=== PATIENT | male | born 1935 | race Caucasian/White ===

== ENCOUNTER 2021-12-06 11:45 | Observation (INO) | payer MEDICARE, SELFPAY ==
[2021-12-06] VITALS (12 sets, daily range): BP systolic 103–117; BP diastolic 53–90; PULSE 60–118; RESP 14–22; TEMP 36.1–37; O2SAT 94–100; BMI 24.1
--- NOTE | ~2021-12-06 | CT_ITS ---
EXAMINATION: CT abdomen pelvis w con DATE: 12/06/2021 13:28 INDICATION: Blood in stool. TECHNIQUE: Computed tomography (CT) of the abdomen and pelvis was performed with 100 mL Omnipaque 350 intravenous contrast. Automated exposure control and iterative reconstruction technique were employe d. The dose-length product was 714.77 mGy-cm. COMPARISON: CT abdomen and pelvis 04/26/2017 FINDINGS: The visualized portions of the lung bases demonstrate mild atelectasis. A calcified right l dustin nodule is consistent with old granulomatous disease. There is a trace left pleural effusion. Card iomegaly is noted. There are pacer wires in right atrium, right ventricle, and coronary sinus. There are coronary artery calcifications. No pericardial effusion. The liver is normal. Calcifications in t he spleen are consistent with old granulomatous disease. The gallbladder, pancreas, and right adrenal gland are normal. There is a 13 mm mass in left adrenal gland measuring soft tissue attenuation with out change, likely an adenoma. There is cortical thinning of the kidneys. There are cysts in the kidn eys measuring up to 3.3 cm on the right. There are no dilated loops of bowel. There are scattered div erticula in the colon. There is fat stranding around a diverticulum in the distal transverse colon. T he appendix is not visualized. There is an umbilical hernia containing fat. The prostate is mildly en larged. There are no pathologically enlarged lymph nodes. There is no free intraperitoneal fluid. The re are bilateral inguinal hernias containing fat. There is a chronic compression fracture of L1. Ther e is mild lumbar spondylosis. IMPRESSION: 1. Mild diverticulitis of distal transverse colon. No perforation or abscess. 2. Umbilical hernia containing fat. Bilateral inguinal hernias containing fat. Reviewed, dictated and finalized at location A.
--- NOTE | 2021-12-06 12:06 | PC.NURSE ---
Patient states he has been having blood in his stool since Monday. Patient denies any pain. Patient has history of polyps. Patient denies taking blood thinners. Patient states blood was dark red with his stool. Patient denies any blood throughout the day in his underwear
[2021-12-06 12:18] LABS: Basophils Percent Auto 0.8 % (0.2-1.2); Eosinophils Absolute Auto 0.1 K/mm3 (0-0.3); Eosinophils Percent Auto 2.1 % (0-4.4); Hematocrit 28.4 % (42.0-52.0); Hemoglobin 9.4 g/dL (14.0-18.0); Immature Granulocyte Absolute 0.01 K/mm3 (0.00-0.031); Immature Granulocyte Percent A 0.2 % (0-0.5); Lymphocytes Absolute Auto 1.65 K/mm3 (0.9-3.2); Mean Corpuscular HGB Conc 33.1 g/dl (32-36); Mean Corpuscular Hemoglobin 33.8 pg (26-34); Mean Corpuscular Volume 102.2 fl (80-100); Mean Platelet Volume 10.3 fl (7.4-10.4); Monocytes Absolute Auto 0.4 K/mm3 (0.1-0.6); Monocytes Percent Auto 8.4 % (2.6-8.5); Neutrophils Absolute Auto 2.7 K/mm3 (1.3-6.7); Neutrophils Percent Auto 54.5 % (45.5-73.1); Platelet Count Result 172 k/mm3 (150-375); Red Blood Count 2.78 M/mm3 (4.6-6.20); Red Cell Distribution Width 13.2 % (11.5-14.5); White Blood Count 4.9 K/mm3 (4.5-10.0)
--- NOTE | 2021-12-06 12:21 | ECG_ITS ---
Measurements Intervals [place] Rate: 113 P: NM: 0 QRS: 96 QRSD: 131 T: 268 QT: 368 QTc: 506 Interpretive Statements INTERMITTENT VENTRICULAR PACED RHYTHM ATRIAL SENSE RHYTHM OCCASIONAL PREMATURE VENTRICULAR CONTRACTIONS NO FURTHER INTERPRETATION POSSIBLE NO PREVIOUS ECG AVAILABLE FOR COMPARISON Electronically Signed On 12-06-2021 16:22:23 CDT by Mahendra Berry M.D.
[2021-12-06 12:29] LABS: INR 1.3; Prothrombin Time 15.2 Seconds (11.1-14.7)
[2021-12-06 12:30] LABS: Partial Thromboplastin Time 24.8 SECONDS (22.3-36.8)
--- NOTE | 2021-12-06 12:36 | ED.GENADULT ---
HPI - General Adult General Chief complaint: GI Bleed Stated complaint: GI bleed Time Seen by Provider: 12/06/21 12:06 History of Present Illness HPI narrative: This is a 86-year-old male was in the ED with chief complaint of GI bleed. For the last 24 hours the patient has been having wine colored stools. He is also complaining of fatigue, dyspnea on exertion and shortness of breath. Patient had a colonoscopy in 2013 that had some polyps that were removed. The patient denies use of blood thinners. Patient denies abdominal pain, chest pain or any other physical complaints. Related Data Home Medications Medication Instructions Recorded Confirmed No Home Medications 12/06/21 12/06/21 Allergies Allergy/AdvReac Type Severity Reaction Status Date / Time No Known Allergies Allergy Verified 12/06/21 12:03 Review of Systems Review of Systems: CONSTITUTIONAL: Denies night sweats. EYES: No eye pain ENT: Denies rhinorrhea CARDIOVASCULAR: Denies palpitations RESPIRATORY: Denies hemoptysis GASTROINTESTINAL: Denies hematemesis GENITOURINARY: Denies hematuria. SKIN: Denies rash MUSCULOSKELETAL: Denies myalgia. NEUROLOGIC: Denies weakness. PSYCHIATRIC: Denies delusions PMF Past Medical History Medical History (Updated 12/06/21 @ 14:59 by Ramana Zarco MD) Atrial fibrillation CAD (coronary artery disease) CHF (congestive heart failure) Lower extremity edema Mixed hyperlipidemia Umbilical hernia Surgical History Surgical History (Updated 04/30/19 @ 15:17 by Cheryl Baez NP) History of heart artery stent (~12/2017) stents x 2 Family History Family History (Updated 12/08/17 @ 10:57 by DOCTOR UNKNOWN) Other Cerebrovascular accident Family history of lung cancer Social History Social History Smoking status: Never smoker Alcohol intake: current Exam Narrative: APPEARANCE: No apparent distress. Patient appears pale Head atraumatic. EYES: PERRLA/EOMI, NOSE: Normal no drainage NECK: Supple, Trachea midline RESPIRATORY: CTAB, No increased work of breathing. CARDIOVASCULAR: S1S2 appreciated ABDOMINAL: Soft, nontender, nondistended, no guarding or rebound Rectal exam revealed dark red stool in the rectal vault that was Hemoccult positive. MUSCULOSKELETAl: No obvious deformities NEURO: Alert. Moving 4/4 extremities SKIN:: Warm, dry. Normal color PSYCHIATRIC: Normal affect Course Vital Signs Vital signs: Vital Signs Temperature 97.6 F 12/06/21 12:00 Pulse Rate 118 H 12/06/21 12:00 Respiratory Rate 18 12/06/21 12:00 Blood Pressure 103/59 L 12/06/21 12:00 Pulse Oximetry 98 12/06/21 12:00 Temperature 97.3 F L 12/06/21 13:51 Pulse Rate 100 12/06/21 13:51 Respiratory Rate 19 12/06/21 13:51 Blood Pressure 103/80 12/06/21 13:51 Pulse Oximetry 99 12/06/21 13:51 Medical Decision Making MDM Narrative Medical decision making narrative: This is an 86-year-old male presenting with a GI bleed. He is tachycardic with a relatively low blood pressure. 2 units of blood have been ordered stat. The abdominal lab work and CT abdomen pelvis have also been ordered. patient's initial hemoglobin was 9.4. This is an acute bleed that may not accurately represent patient's true hemoglobin and should be trended over time. INR was normal. Metabolic panel was normal. Patient's CT abdomen pelvis showed transverse colon diverticulitis. Patient's abdominal exam is benign and he has not have pain at this time. However given the patient's GI bleed and abnormal vital signs I am going to treat him with antibiotics. EKG interpretation: Rhythm intermittently paced, [id number], [place] - rightward, [place] - variable, QRS [narrow], QTC [normal], T waves -[negative for concerning inversions], ST Segments - [Negative for concerning elevations] Final interpretations: intermittently paced rhythm with occasional multifocal PVCs. I discussed the case with Dr. Dugan
[2021-12-06 12:59] LABS: Alanine Aminotransferase 16 U/L (6-50); Alkaline Phosphatase 71 U/L (38-126); Anion Gap 16 mmol/L (8-16); Aspartate Amino Transferase 23 U/L (17-59); Bilirubin,Total 0.5 mg/dL (0.2-1.3); Blood Urea Nitrogen 21 mg/dL (9-20); Calcium 8.5 mg/dL (8.4-10.2); Carbon Dioxide 25 mmol/L (22-30); Chloride 104 mmol/L (98-107); Estimated CRCL calculation 55 ml/min; Estimated Glomerular Filt Rate > 60; Glucose 125 mg/dL (65-110); Sodium 145 mmol/L (137-145)
[2021-12-06] MEDS: TUBING, BLOOD PLUM PUMP TUBING 1 EACH XX (14:04)
[2021-12-06] MEDS: SODIUM CHLORIDE 0.9% IV 250 ML 30 ML IV CONT (14:04)
[2021-12-06 15:20] LABS: Influenza A QL RT-PCR Negative (Negative); Influenza B QL RT-PCR Negative (Negative); SARS-CoV-2 RNA PCR Negative
--- NOTE | 2021-12-06 15:30 | PM.IMHP ---
H&P: HPI History of Present Illness Date/Time: 12/06/21 15:30 Chief Complaint: Rectal bleeding. Narrative: This is an 86-year-old male with history of diverticulitis, coronary artery disease, congestive heart failure, and paroxysmal atrial fibrillation not on anticoagulation presented to the emergency department from home for evaluation of rectal bleeding. Over the last 24 hours he has had 4 to 5 soft bowel movements coated with bright red blood. He has become increasingly weak after each bloody stool and he has been feeling lightheaded and dizzy today which prompted him to come in for evaluation. His vital signs were stable on arrival and his hemoglobin and hematocrit were 9.4 and 28.4% respectively. On rectal exam he was noted to have gross blood in the rectal vault and a subsequent CT scan of the abdomen and pelvis showed findings of mild diverticulitis of the distal transverse colon. Interestingly he has no pain whatsoever and he reports having a good appetite. He has not had fever, chills, or sweats. He also denies abdominal pain, bloating, nausea, and vomiting. Review of Systems Review of Systems: Twelve systems were reviewed. He is no longer taking any medications at home. No fever, chills, or sweats. No recent cold or flu symptoms. He denies chest pain shortness a breath. Except as documented, all other systems were reviewed and are negative. [facility] Past Medical History Medical History (Updated 12/06/21 @ 22:51 by Marion Montana PA-C) Atrial fibrillation CAD (coronary artery disease) CHF (congestive heart failure) Lower extremity edema Mixed hyperlipidemia Umbilical hernia Surgical History Surgical History (Updated 12/06/21 @ 22:51 by Marion Montana PA-C) History of colonoscopy with polypectomy History of heart artery stent (~12/2017) stents x 2 History of permanent cardiac pacemaker placement Family History Family History Daughter Family history of lung cancer Grandparent Cerebrovascular accident Social History Social History (Updated 12/06/21 @ 22:49 by Marion Montana PA-C) Social History: Surrogate medical decision maker: Isatu Moore, spouse. Code status: Full code. Smoking status: Never smoker Alcohol intake: never Substance use: never Additional living arrangements comments: The patient lives with his in [place]. Additional occupation/education comments: Retired from [employer], played [email or web address]. Spiritual care concerns: No Has the Lack of Transportation Kept You From Medical Appointments or From Getting Medications?: No Within the Past 12 Months, Were You Worried Whether Your Food Would Run Out Before You Got Money to Buy More?: Never True What is Your Housing Situation Today?: I Have Housing Are You Worried That in the Next 2 Months, You May Not Have Your Own Housing to Live In?: No Do You Have Trouble Paying Your Heating Or Electricity Bill?: No Do You Have Trouble Paying For Medicines?: No Are You Currently Unemployed and Looking for Work?: No Highest Level of Education Completed: Master's Degree or Higher Do You Have Trouble With Childcare or the Care of a Family Member?: No Meds Home Medications and Allergies Home Medications Medication Instructions Recorded Confirmed Type No Home Medications 12/06/21 12/06/21 History Allergies Allergy/AdvReac Type Severity Reaction Status Date / Time No Known Allergies Allergy Verified 12/06/21 19:01 Vital Signs Vital Signs - 24 hr 12/06/21 12:00 12/06/21 12:31 12/06/21 13:33 Temperature 97.6 F 97.2 F L Pulse Rate 118 H 94 107 H Respiratory Rate 18 20 20 Blood Pressure 103/59 L 117/75 104/69 Pulse Oximetry 98 98 12/06/21 13:40 12/06/21 13:46 12/06/21 13:51 Temperature 97 F L 97.3 F L 97.3 F L Pulse Rate 106 H 105 H 100 Respiratory Rate 20 22 H 19 Blood Pressure 104/79 108/75 103/80 Pulse
--- NOTE | 2021-12-06 17:39 | WPDGICN ---
Assessment and Plan Assessment and plan (1) GI (gastrointestinal bleed): Code(s): K92.2 - Gastrointestinal hemorrhage, unspecified Status: Acute Assessment and Plan: Judging by the color of his bloody stool, I am fairly certain this is a lower gastrointestinal bleed. The etiology could be diverticular bleed or possible AVMs. I doubt malignancy. I told the will schedule for colonoscopy, prepping him tomorrow for procedure on Monday. (2) Atrial fibrillation: Code(s): I48.91 - Unspecified atrial fibrillation Status: Chronic Assessment and Plan: He is not anticoagulated. He does have a pacemaker. (3) Paced cardiac rhythm: Status: Acute Assessment and Plan: EKG shows occasionally ventricular paced rhythm. (4) Diverticulitis: Code(s): K57.92 - Diverticulitis of intestine, part unspecified, without perforation or abscess without bleeding Status: Acute Assessment and Plan: CT suggest possible diverticulitis in the area the transverse colon but he is nontender. Nevertheless, diverticular disease is probably the etiology of his bleeding. GI Consult Note Consult date/time: 12/06/21 17:39 HPI: Lizandro Moore is a 86 year old male who began passing dark red blood per rectum this weekend. He states that he has never had anything like this before. He knows that he has had colon polyps in the past. He states that he recalls popping several polyps and in 10 years ago had a colonoscopy in [place] where 1 small polyp was removed. He has had diverticulitis in the past he remembers help painful it was. He has had no pain over the last several days. He did not get sweaty or pass out. He may have been a little lightheaded walking around. He has chronic atrial fibrillation but is not anticoagulated. He has not had nausea or vomiting. He denies dysphagia. He denies any history of liver disease or pancreatic disease. Review of Systems Review of Systems: All systems reviewed & are unremarkable except as noted in HPI and below [facility] Past Medical History Medical History Atrial fibrillation CAD (coronary artery disease) CHF (congestive heart failure) Lower extremity edema Mixed hyperlipidemia Umbilical hernia Surgical History Surgical History History of heart artery stent (~12/2017) stents x 2 Family History Family History Other Cerebrovascular accident Family history of lung cancer Social History Social History Smoking status: Never smoker Alcohol intake: current Meds Home Medications and Allergies Home Medications Medication Instructions Recorded Confirmed Type No Home Medications 12/06/21 12/06/21 History Allergies Allergy/AdvReac Type Severity Reaction Status Date / Time No Known Allergies Allergy Verified 12/06/21 12:03 Vital Signs Vital Signs - 24 hr 12/06/21 12:00 12/06/21 12:31 12/06/21 13:33 Temperature 36.4 C 36.2 C L Pulse Rate 118 H 94 107 H Respiratory Rate 18 20 20 Blood Pressure 103/59 L 117/75 104/69 Pulse Oximetry 98 98 12/06/21 13:40 12/06/21 13:46 12/06/21 13:51 Temperature 36.1 C L 36.3 C L 36.3 C L Pulse Rate 106 H 105 H 100 Respiratory Rate 20 22 H 19 Blood Pressure 104/79 108/75 103/80 Pulse Oximetry 99 100 99 Exam Const: General: alert Orientation/consciousness: patient oriented x3 Resp: Auscultation: clear to auscultation bilaterally Cardio: Rhythm: regular rhythm and abnormal rhythm irregularly irregular GI: GI Palp: Yes Soft to palpation, No Tenderness to palpation present (GI) and Yes No hepatosplenomegaly present Auscultation: normal bowel sounds Neuro: General: patient oriented x3 Results Labs CBC & Chem 7: 12/06/21 12:10 11/14
--- NOTE | 2021-12-06 18:53 | ADMGEN ---
This patient, Lizandro Moore, was admitted to [facility] Surg Room 316-01. Patient/family oriented to hospital policies and general routines including ID bracelet, bed and alarms, visiting hours, pain management, procedures, bathroom and other care routines, personal items, smoking policy, room service/diet, and visiting hours. Information on how to activate the Rapid Response Team has been discussed. Patient/Family are encouraged to report perceived risks to care and to ask questions if they do not understand what they are told or what they should do.
[2021-12-06 23:26] LABS: Hematocrit 27.6 % (42.0-52.0); Hemoglobin 9.1 g/dL (14.0-18.0)
[2021-12-07] VITALS (14 sets, daily range): BP systolic 97–172; BP diastolic 58–142; PULSE 56–131; RESP 14–16; TEMP 36.4–36.7; O2SAT 94–100
[2021-12-07 08:12] LABS: Hematocrit 28.8 % (42.0-52.0); Hemoglobin 9.4 g/dL (14.0-18.0); Immature Platelet Fraction Pct 4.5 % (0.9-11.2); Mean Corpuscular HGB Conc 32.6 g/dl (32-36); Mean Corpuscular Hemoglobin 32.5 pg (26-34); Mean Corpuscular Volume 99.7 fl (80-100); Mean Platelet Volume 10.1 fl (7.4-10.4); Platelet Count Result 154 k/mm3 (150-375); Red Blood Count 2.89 M/mm3 (4.6-6.20); Red Cell Distribution Width 17.4 % (11.5-14.5); White Blood Count 4.6 K/mm3 (4.5-10.0)
[2021-12-07 08:27] LABS: Anion Gap 7 mmol/L (8-16); Blood Urea Nitrogen 17 mg/dL (9-20); Carbon Dioxide 27 mmol/L (22-30); Chloride 107 mmol/L (98-107); Estimated CRCL calculation 51 ml/min; Estimated Glomerular Filt Rate > 60; Glucose 105 mg/dL (65-110); Magnesium 1.8 mg/dL (1.6-2.3); Potassium 4.1 mmol/L (3.4-5.0); Sodium 141 mmol/L (137-145)
[2021-12-07] MEDS: BISACODYL 5 MG TABLET EC 10 MG PO (09:36)
--- NOTE | 2021-12-07 11:01 | PM.IMPN ---
Progress Note: A&P Assessment and Plan (1) Diverticulitis: Code(s): K57.92 - Diverticulitis of intestine, part unspecified, without perforation or abscess without bleeding Status: Acute Assessment and Plan: Continue IV antibiotics. (2) Rectal bleeding: Code(s): K62.5 - Hemorrhage of anus and rectum Status: Acute Assessment and Plan: Likely secondary to above. Plan for scope GI tomorrow. (3) Macrocytic anemia: Code(s): D53.9 - Nutritional anemia, unspecified Status: Acute Assessment and Plan: Monitor hemoglobin and transfuse as needed hemoglobin is stable today. Subjective Date/time seen: 12/07/21 11:01 patient is doing well no new complaints. Exam Narrative: General: Well-developed male sitting up in bed in no acute distress. Weight: 85.3 kilograms. BMI: 24.1. HEENT: PERRL, EOMI. Sclera anicteric. Conjunctiva mildly injected. Oral mucosa moist. Neck: Supple. Respiratory: Lungs are clear to auscultation bilaterally. Cardiovascular: Regular rate and rhythm with S1-S2. Gastrointestinal: Abdomen is soft and nondistended with positive bowel sounds. He is somewhat tender to deeper palpation the periumbilical region. No voluntary guarding or rebound tenderness. Skin: Warm and dry. Generalized pallor. Extremities: No cyanosis or clubbing. Trace ky ankle edema bilaterally. Radial and pedal pulses intact. Neurological: Alert. Cranial nerves 2-12 are grossly intact. No gross focal deficits to casual conversation. Psychiatric: Pleasant and cooperative with normal mood and affect. Objective Data Vital Signs Vital Signs: Vital Signs - 24 hr 12/06/21 12:00 12/06/21 12:31 12/06/21 13:33 Temperature 97.6 F 97.2 F L Pulse Rate 118 H 94 107 H Respiratory Rate 18 20 20 Blood Pressure 103/59 L 117/75 104/69 Pulse Oximetry 98 98 Oxygen Delivery 12/06/21 13:40 12/06/21 13:46 12/06/21 13:51 Temperature 97 F L 97.3 F L 97.3 F L Pulse Rate 106 H 105 H 100 Respiratory Rate 20 22 H 19 Blood Pressure 104/79 108/75 103/80 Pulse Oximetry 99 100 99 Oxygen Delivery 12/06/21 17:42 12/06/21 18:00 12/06/21 19:00 Temperature 98.2 F 98.3 F 98.3 F Pulse Rate 63 94 62 Respiratory Rate 20 20 20 Blood Pressure 110/90 104/53 L 113/67 Pulse Oximetry 99 99 99 Oxygen Delivery 12/06/21 20:00 12/06/21 21:07 12/06/21 20:00 Temperature 98 F 98.6 F Pulse Rate 86 60 116 H Respiratory Rate 18 14 Blood Pressure 114/72 105/75 Pulse Oximetry 94 98 Oxygen Delivery 12/06/21 20:00 12/06/21 22:00 12/07/21 00:00 Temperature 98.6 F Pulse Rate 60 104 H Respiratory Rate 14 Blood Pressure 105/75 Pulse Oximetry 98 Oxygen Delivery Room Air 12/07/21 04:00 12/07/21 06:00 12/07/21 08:00 Temperature 98.1 F Pulse Rate 109 H 56 L Respiratory Rate 14 Blood Pressure 110/67 143/118 H Pulse Oximetry 96 Oxygen Delivery 12/07/21 08:50 12/07/21 08:51 12/07/21 09:00 Temperature Pulse Rate Respiratory Rate Blood Pressure 149/124 H 172/142 H 118/58 L Pulse Oximetry Oxygen Delivery 12/07/21 08:00 Temperature Pulse Rate 131 H Respiratory Rate Blood Pressure Pulse Oximetry Oxygen Delivery Intake/Output Intake/Output: Intake & Output 12/04/21 12/05/21 12/06/21 12/07/21 23:59 23:59 23:59 23:59 Intake Total 750 1007 Balance 750 1007 Meds/Results Medications: Active Medications Generic Name Dose Route Start Last Admin Trade Name Freq PRN Reason Stop Dose Admin Piperacillin/Tazobactam/Dextrose 3.375 gm in 50 mls @ 100 mls/hr 12/07/21 00:00 12/07/21 06:06 Zosyn 3.375 Gm/D5w 50ml Pm IVPB 100 mls/hr Q6H SHANE Administration Polyethylene Glycol 238 gm 12/07/21 15:00 Polyethylene Glycol 3350 238 Gm Bottle PO 12/07/21 15:01 ONCE ONE Radiology Results: ITS Impressions Abdomen/Pelvis CT 12/06/21 13:29 IMPRESSION: 1. Mild diverticulitis of distal transverse
[2021-12-07] MEDS: polyethylene glycoL 3350 238 GM BOTTLE PO (15:10)
--- NOTE | 2021-12-07 19:54 | PC.NURSE ---
last on bowel prep given now, pt to finish bowel prep for colonoscopy tomorrow 12/08/21 at around 1130am
[2021-12-08] VITALS (15 sets, daily range): BP systolic 84–111; BP diastolic 56–77; PULSE 62–100; RESP 15–200; TEMP 35.8–36.4; O2SAT 93–100
--- NOTE | 2021-12-08 01:55 | PC.NURSE ---
pt stated bm's clear
[2021-12-08] MEDS: LACTATED RINGERS 1,000 ML 150 ML IV CONT (10:14)
--- NOTE | 2021-12-08 10:36 | WPDANESEPPF ---
Anes - Initial Pre Proc Eval Procedure: Operation Date: 12/08/21 11:30 Proposed Procedures p Colonoscopy - Sampson Dugan MD Date/Time: 12/08/21 10:36 Surgeon: Levi Rockwell MD Pre Op Diagnosis: GI Bleed Patient Data Age: 86 Gender: M Height: 1.88 m Weight: 85.9 kg Last Vital Signs Temp 97.1 F L 12/08/21 10:11 Pulse 77 12/08/21 10:11 Resp 20 12/08/21 10:11 BP 95/70 L 12/08/21 10:11 Pulse Ox 98 12/08/21 10:11 O2 Del Method Room Air 12/08/21 10:11 Allergies Allergy/AdvReac Type Severity Reaction Status Date / Time No Known Allergies Allergy Verified 12/08/21 10:10 Home Medications Medication Instructions Recorded Confirmed Type No Home Medications 12/06/21 12/06/21 History Patient hx anesthesia problems: none Family hx anesthesia problems: none Results Review: All pre-operative results and documents have been reviewed as part of the pre-operative evaluation. [facility] Past Medical History Medical History (Updated 12/06/21 @ 22:51 by Marion Montana PA-C) Atrial fibrillation CAD (coronary artery disease) CHF (congestive heart failure) Lower extremity edema Mixed hyperlipidemia Umbilical hernia Surgical History Surgical History (Updated 12/06/21 @ 22:51 by Marion Montana PA-C) History of colonoscopy with polypectomy History of heart artery stent (~12/2017) stents x 2 History of permanent cardiac pacemaker placement Family History Family History Daughter Family history of lung cancer Grandparent Cerebrovascular accident Social History Social History (Updated 12/06/21 @ 22:49 by Marion Montana PA-C) Social History: Surrogate medical decision maker: Isatu Moore, spouse. Code status: Full code. Smoking status: Never smoker Alcohol intake: never Substance use: never Additional living arrangements comments: The patient lives with his in [place]. Additional occupation/education comments: Retired from [employer], played [employer]. Spiritual care concerns: No Has the Lack of Transportation Kept You From Medical Appointments or From Getting Medications?: No Within the Past 12 Months, Were You Worried Whether Your Food Would Run Out Before You Got Money to Buy More?: Never True What is Your Housing Situation Today?: I Have Housing Are You Worried That in the Next 2 Months, You May Not Have Your Own Housing to Live In?: No Do You Have Trouble Paying Your Heating Or Electricity Bill?: No Do You Have Trouble Paying For Medicines?: No Are You Currently Unemployed and Looking for Work?: No Highest Level of Education Completed: Master's Degree or Higher Do You Have Trouble With Childcare or the Care of a Family Member?: No Anes - Eval Final PreProcedure Day of Procedure 12/08/21 10:36 Patient weight: normal Heart: irregular rhythm Lungs: clear to auscultation Airway: Mallampati scale class II Neurological: alert and oriented Last oral intake: >/= 8 hours ASA classification: IV Emergent: no Anesthetic plan: proceed Anesthesia type and monitoring: general (has h/o CHF and last echo of 2018 revealed an EF of 10-15 percent; no others on the chart and 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 Informed Consent: The patient's anesthetic plan and its attendant risks and benefits were discussed with the patient/family/POA. Questions were solicited and answers provided to the satisfaction of the patient/family/POA.
--- NOTE | 2021-12-08 12:06 | SUR.PHASEII ---
Pt's EKG rhythm shown to Dr. Mccrary. No further orders.
--- NOTE | 2021-12-08 13:37 | PM.IMPN ---
Progress Note: A&P Assessment and Plan (1) Diverticulitis: Code(s): K57.92 - Diverticulitis of intestine, part unspecified, without perforation or abscess without bleeding Status: Acute Assessment and Plan: Patijennyn presents with rectal bleeding. CT scan showing mild diverticulitis of distal colon. He was started on Zosyn. Colonoscopy showing diverticulosis with recent bleeding. Continue abx for now. Advance diet. (2) Rectal bleeding: Code(s): K62.5 - Hemorrhage of anus and rectum Status: Acute Assessment and Plan: Likely secondary to diverticular bleeding. Monitor to ensure the bleeding has stopped. (3) Macrocytic anemia: Code(s): D53.9 - Nutritional anemia, unspecified Status: Acute Assessment and Plan: Hgb low in the 9 range but stable. Bleeding appears to have stopped. Monitor hemoglobin and transfuse as needed. (4) CAD (coronary artery disease): Code(s): I25.10 - Atherosclerotic heart disease of [place] coronary artery without angina pectoris Status: Chronic Assessment and Plan: Not on treatment. (5) CHF (congestive heart failure): Code(s): I50.9 - Heart failure, unspecified Status: Chronic Assessment and Plan: Appears euvolemic. Echo in 2018 showing EF 10-15% with severe MR. Not on treatment. Follow (6) Atrial fibrillation: Code(s): I48.91 - Unspecified atrial fibrillation Status: Chronic Assessment and Plan: EKG showing paced rhythm. Not on treatment for AFib. Subjective Date/time seen: 12/08/21 13:37 Interval history: 86yo male with CAD, AFib and CHF here for rectal bleeding. Assuming care. Chart reviewed. No CP or SOB. No abd pain. He never had abd pain prior to admission. He does not take any home medications except Tylenol prn. He drinks 1 glass or wine per day. He was still having rectal bleeding with the bowel prep but it almost cleared by the end of the prep. Exam Narrative: AF 96.8 111/56 73 20 94% ra Gen - NARD Chest - CTA bilaterally, nml RR CV - Regular with frequent extra beats. nml rate Abd - Soft, NT/ND, Positive BS Ext - No pedal edema Psych - Nml mood and affect Skin - pale appearing Objective Data Vital Signs Vital Signs: Vital Signs - 24 hr 12/07/21 14:00 12/07/21 16:00 12/07/21 17:34 Temperature 97.9 F Pulse Rate 108 H 101 H Respiratory Rate 14 Blood Pressure 97/66 L 110/73 Pulse Oximetry 98 Oxygen Delivery 12/07/21 20:00 12/07/21 20:00 12/07/21 20:00 Temperature 97.9 F Pulse Rate 101 H 123 H Respiratory Rate 14 Blood Pressure 110/73 Pulse Oximetry 98 Oxygen Delivery Room Air 12/07/21 22:00 12/08/21 00:00 12/08/21 06:20 Temperature 97.5 F L 96.9 F L Pulse Rate 73 98 70 Respiratory Rate 16 15 Blood Pressure 114/80 99/70 L Pulse Oximetry 100 97 Oxygen Delivery 12/08/21 07:38 12/08/21 09:54 12/08/21 09:55 Temperature 96.4 F L 96.4 F L 96.4 F L Pulse Rate 100 92 62 Respiratory Rate 20 20 20 Blood Pressure 105/77 93/74 L 94/70 L Pulse Oximetry 99 98 100 Oxygen Delivery 12/08/21 10:04 12/08/21 10:05 12/08/21 10:05 Temperature 96.4 F L 96.4 F L 96.4 F L Pulse Rate 100 92 62 Respiratory Rate 20 200 H 20 Blood Pressure 105/77 93/74 L 94/70 L Pulse Oximetry 99 98 100 Oxygen Delivery 12/08/21 10:11 12/08/21 11:11 12/08/21 11:21 Temperature 97.1 F L Pulse Rate 77 90 88 Respiratory Rate 20 24 H 19 Blood Pressure 95/70 L 92/66 L 84/57 L Pulse Oximetry 98 93 94 Oxygen Delivery Room Air Room Air Room Air 12/08/21 11:31 12/08/21 12:03 Temperature 96.8 F L Pulse Rate 73 73 Respiratory Rate 30 H 20 Blood Pressure 95/63 L 111/56 L Pulse Oximetry 93 94 Oxygen Delivery Room Air Intake/Output Intake/Output: Intake & Output 12/05/21 12/06/21 12/07/21 12/08/21 23:59 23:59 23:59 23:59 Intake Total 750 2047 350 Balance 750 2047 350 Meds/Results Medications
[2021-12-09 06:00] VITALS: BP 105/60; PULSE 71; RESP 18; TEMP 36.2; O2SAT 98
[2021-12-09 06:24] LABS: Hematocrit 25.6 % (42.0-52.0); Hemoglobin 8.3 g/dL (14.0-18.0); Mean Corpuscular HGB Conc 32.4 g/dl (32-36); Mean Corpuscular Hemoglobin 31.9 pg (26-34); Mean Corpuscular Volume 98.5 fl (80-100); Mean Platelet Volume 10.3 fl (7.4-10.4); Platelet Count Result 170 k/mm3 (150-375); Red Cell Distribution Width 16.2 % (11.5-14.5); White Blood Count 5.1 K/mm3 (4.5-10.0)
--- NOTE | 2021-12-09 07:07 | WPDGIPROGNO ---
Progress Note: A&P Assessment and Plan (1) GI (gastrointestinal bleed): Code(s): K92.2 - Gastrointestinal hemorrhage, unspecified Status: Acute Assessment and Plan: Judging by the color of his bloody stool, I am fairly certain this is a lower gastrointestinal bleed. The etiology could be diverticular bleed or possible AVMs. I doubt malignancy. I told the will schedule for colonoscopy, prepping him tomorrow for procedure on Monday. colonoscopy did reveal extensive diverticular disease and much old blood in the colon. Hemoglobin is a little lower--- 8.3-- but stable. From my perspective he can be discharged today (2) Atrial fibrillation: Code(s): I48.91 - Unspecified atrial fibrillation Status: Chronic Assessment and Plan: He is not anticoagulated. He does have a pacemaker. (3) Paced cardiac rhythm: Status: Acute Assessment and Plan: EKG shows occasionally ventricular paced rhythm. (4) Diverticulitis: Code(s): K57.92 - Diverticulitis of intestine, part unspecified, without perforation or abscess without bleeding Status: Acute Assessment and Plan: CT suggest possible diverticulitis in the area the transverse colon but he is nontender. Nevertheless, diverticular disease is probably the etiology of his bleeding. I do not see evidence of diverticulitis on colonoscopy. No edema or erythema. I think we can discontinue his antibiotics. Subjective Date/time seen: 12/09/21 07:07 He had 1 stool last evening that contained dark blood. It was not loose as previous bowel movements had been. He tolerated his regular low-fiber dinner. Denies complaints. No abdominal pain. We discussed the findings of his colonoscopy, extensive diverticular disease with evidence of recent bleeding distal to the hepatic flexure. He does not take anti-inflammatories or aspirin at home. Tina that there is always a chance of recurrent bleeding but that this does not tend to occur frequently in patients who are not on something like aspirin Exam Const: General: alert Orientation/consciousness: patient oriented x3 Resp: Auscultation: clear to auscultation bilaterally Cardio: Rhythm: regular rhythm and abnormal rhythm irregularly irregular GI: GI Palp: Yes Soft to palpation, No Tenderness to palpation present (GI) and Yes No hepatosplenomegaly present Auscultation: normal bowel sounds Neuro: General: patient oriented x3 Objective Data Vital Signs Vital Signs: Vital Signs - 24 hr 12/08/21 07:38 12/08/21 09:54 12/08/21 09:55 Temperature 35.8 C L 35.8 C L 35.8 C L Pulse Rate 100 92 62 Respiratory Rate 20 20 20 Blood Pressure 105/77 93/74 L 94/70 L Pulse Oximetry 99 98 100 Oxygen Delivery 12/08/21 10:04 12/08/21 10:05 12/08/21 10:05 Temperature 35.8 C L 35.8 C L 35.8 C L Pulse Rate 100 92 62 Respiratory Rate 20 200 H 20 Blood Pressure 105/77 93/74 L 94/70 L Pulse Oximetry 99 98 100 Oxygen Delivery 12/08/21 10:11 12/08/21 11:11 12/08/21 11:21 Temperature 36.2 C L Pulse Rate 77 90 88 Respiratory Rate 20 24 H 19 Blood Pressure 95/70 L 92/66 L 84/57 L Pulse Oximetry 98 93 94 Oxygen Delivery Room Air Room Air Room Air 12/08/21 11:31 12/08/21 12:03 12/08/21 14:00 Temperature 36.0 C L 36.1 C L Pulse Rate 73 73 70 Respiratory Rate 30 H 20 18 Blood Pressure 95/63 L 111/56 L 102/62 Pulse Oximetry 93 94 98 Oxygen Delivery Room Air 12/08/21 22:00 Temperature 36.2 C L Pulse Rate 83 Respiratory Rate 15 Blood Pressure 94/58 L Pulse Oximetry 94 Oxygen Delivery Intake/Output Intake/Output: Intake & Output 12/06/21 12/07/21 12/08/21 12/09/21 23:59 23:59 23:59 23:59 Intake Total 750 2047 750 50 Balance 750 2047 750 50 Meds/Results Radiology Results: ITS Impressions Abdomen/Pelvis CT 12/06/21 13:29 IMPRESSION: 1. Mild diverticulitis of distal transverse colon. No perforation or abscess. 2. Umbilical hernia conta
[2021-12-09 08:00] VITALS: BP 87/70; PULSE 93; RESP 20; TEMP 36.2; O2SAT 100
--- NOTE | 2021-12-09 09:16 | WPDANESPN ---
Anes - Prog Note Post-Op Date/Time: 12/09/21 09:16 Vital Signs: Last Vital Signs Temp 36.2 C L 12/09/21 06:00 Pulse 71 12/09/21 06:00 Resp 18 12/09/21 06:00 BP 105/60 12/09/21 06:00 Pulse Ox 98 12/09/21 06:00 O2 Del Method Room Air 12/08/21 11:31 Pain Score (VAS): 0 I/O: Intake & Output 12/08/21 12/09/21 12/09/21 23:59 07:59 15:59 Intake Total 400 400 Balance 400 400 Laboratory Tests 12/09/21 05:57 12/07/21 07:54 12/09/21 05:57 WBC 5.1 RBC 2.60 L Hgb 8.3 L Hct 25.6 L MCV 98.5 MCH 31.9 MCHC 32.4 RDW 16.2 H Plt Count 170 MPV 10.3 Patient Feedback: Patient satisfied with anesthetic care.
[2021-12-09 10:04] VITALS: BP 92/55; BP 95/58
[2021-12-09 14:00] VITALS: BP 94/64; PULSE 96; RESP 20; TEMP 36.3; O2SAT 100
--- NOTE | 2021-12-09 14:43 | PM.DS ---
DS: Admitting Diagnosis Discharge Date 12/09/21 Admitting Diagnosis Rectal bleeding DS: Discharge Diagnosis Discharge Diagnosis (1) Diverticulosis: Code(s): K57.90 - Diverticulosis of intestine, part unspecified, without perforation or abscess without bleeding Status: Acute (2) Diverticulitis: Code(s): K57.92 - Diverticulitis of intestine, part unspecified, without perforation or abscess without bleeding Status: Acute (3) Rectal bleeding: Code(s): K62.5 - Hemorrhage of anus and rectum Status: Acute (4) Macrocytic anemia: Code(s): D53.9 - Nutritional anemia, unspecified Status: Acute (5) CAD (coronary artery disease): Code(s): I25.10 - Atherosclerotic heart disease of [place] coronary artery without angina pectoris Status: Chronic (6) CHF (congestive heart failure): Code(s): I50.9 - Heart failure, unspecified Status: Chronic (7) Atrial fibrillation: Code(s): I48.91 - Unspecified atrial fibrillation Status: Chronic DS: Summary Hospital Course Reason for hospitalization: 86yo male with CAD, AFib and CHF here for rectal bleeding. Please see H&P for details Hospital Course: Patient presents with rectal bleeding. CT scan showing mild diverticulitis of distal colon. He was started on Zosyn. Colonoscopy showing diverticulosis with recent bleeding. no evidence however of diverticulitis by the colonoscopy. Antibiotics were stopped. Diverticulitis ruled out. The patient's diet was advanced he tolerated this well. Hemoglobin was low in the 8-9 range and remained stable. It was felt patient had acute blood loss anemia with probably chronic underlying anemia. He had a macrocytosis noted. Patient has CAD, CHF and atrial fibrillation but is not on treatment for these disorders. Patient overall did well. He was able be discharged home on 12/09/2021. Status at Discharge Cognitive/behavioral status at discharge: stable Time Spent with Patient Time attestation: Total time spent providing and/or coordinating discharge services: 34 minutes Time spent: Greater than 30 minutes Exam Narrative: AF 97.4 94/64 96 20 100% ra Gen - NARD Chest - CTA bilaterally, nml RR. PM in the left upper chest CV - Regular with frequent extra beats. nml rate Abd - Soft, NT/ND, Positive BS Ext - No pedal edema Psych - Nml mood and affect Skin - warm and dry DS: Data Data Completed and Pending Labs on day of discharge: Labs from last 24 hours 12/09/21 05:57 WBC 5.1 RBC 2.60 L Hgb 8.3 L Hct 25.6 L MCV 98.5 MCH 31.9 MCHC 32.4 RDW 16.2 H Plt Count 170 MPV 10.3 Discharge Plan Discharge Attending physician on discharge: Stephen Gustafson Consulting providers: Sampson Dugan Discharging Clinician: Stephen Gustafson Anticipated Discharge Date/Time: 12/09/21 14:48 Patient Disposition: Home, Self-Care Activity: as tolerated Diet: low fiber Discharge Instructions: Take precautions to avoid falls. Rise slowly from a lying or sitting position. Pause before standing or walking. Contact your doctor or call 911 and come to the Emergency Room if you have lightheadedness with standing or other worrisome symptoms. Avoid NSAIDs (ibuprofen, naproxen, Aleve). Tylenol is safe to take. Follow-up with your doctor in 1-2 weeks. Please call for appointment. Thank you for using [facility] for your health care needs. Patient Instructions: Antibiotic Form, Blood Transfusion (DC), Colonoscopy (DC), Upper Endoscopy (DC) Stand Alone Forms: General Discharge Information Follow-up/Referrals: Sampson Dugan MD [Physician] - Other (Follow up as needed) Cynthia Monk MD [Primary Care Provider] - Call for Appointment Discharge Medications: New ferrous sulfate 324 mg (65 mg iron) tablet,delayed release (DR/EC) 324 mg PO BID Qty: 60 0RF Continued No Home Medications
== END 2021-12-09 16:50 | disposition home or self-care (01) ==
LOC: ANHED 14:59 → ANH3MEDSUR 12-07 08:29
PROVIDERS: Emergency Medicine; Internal Medicine Gastroenterology; Physician Assistant; Admitting Provider Internal Medicine; Emergency Provider Emergency Medicine; PCP Family Medicine; Visit Provider Internal Medicine
PROC: 0DJD8ZZ Inspection of Lower Intestinal Tract, Via Natural or Artificial Opening Endoscopic (ICD-10-PCS; CPT 45378; principal; 2021-12-08 11:30)
DX: K57.31 Diverticulosis of large intestine without perforation or abscess with bleeding (principal); K57.92 Diverticulitis of intestine, part unspecified, without perforation or abscess without bleeding; D53.9 Nutritional anemia, unspecified; K62.5 Hemorrhage of anus and rectum; K64.8 Other hemorrhoids; I25.10 Atherosclerotic heart disease of native coronary artery without angina pectoris; I50.9 Heart failure, unspecified; I48.91 Unspecified atrial fibrillation; K42.9 Umbilical hernia without obstruction or gangrene; K40.90 Unilateral inguinal hernia, without obstruction or gangrene, not specified as recurrent; I49.9 Cardiac arrhythmia, unspecified; R53.83 Other fatigue; R06.09 Other forms of dyspnea; Z95.5 Presence of coronary angioplasty implant and graft; R60.0 Localized edema; E78.5 Hyperlipidemia, unspecified; F10.90 Alcohol use, unspecified, uncomplicated; Z20.822 Contact with and (suspected) exposure to COVID-19; Z86.010 Personal history of colon polyps
CPT/HCPCS: 45378; 36415; 36430; 74177; 80048; 80053; 83735; 85014; 85018; 85025; 85027; 85055; 85610; 85730; 86850; 86900; 86901; 86923; 87502; 93005; 96365; 99285; A9270; G0378; J2543; J2704; J7050; J7120; P9016; Q9967; U0003; U0005

== ENCOUNTER 2022-05-02 09:15 | Inpatient (IN) | payer MEDICARE, SELFPAY ==
--- NOTE | ~2022-05-02 | XR_ITS ---
Portable chest x-ray Comparison: 05/04/2022 Clinical History: Shortness of breath Findings: Minimal pleural effusions are present. Cardiomediastinal silhouette is stable, with pacem alex. Bones and soft tissues are unremarkable. Impression: Minimal bilateral pleural effusions. Pacemaker device. Reviewed, dictated and finalized at [facility]. Impression: Minimal bilateral pleural effusions. Pacemaker device.
--- NOTE | ~2022-05-02 | XR_ITS ---
EXAMINATION: XR chest 1V portable INDICATION: Congestive heart failure TECHNIQUE: Portable AP chest at 0543 hours COMPARISON: 05/05/2022 FINDINGS: Cardiomegaly is noted. There are small pleural effusions without significant change. Minima l bibasilar airspace opacities are stable. A triple lead cardiac pacemaker of the left chest wall end s with leads in expected locations. There is no pneumothorax. IMPRESSION: 1. Small, stable pleural effusions with minimal bibasilar airspace opacities, atelectasis versus pneu monia. 2. Cardiomegaly. Reviewed, dictated and finalized at location A. IMPRESSION: 1. Small, stable pleural effusions with minimal bibasilar airspace opacities, a telectasis versus pneumonia. 2. Cardiomegaly.
--- NOTE | ~2022-05-02 | XR_ITS ---
Portable chest x-ray Comparison: 05/02/2022 Clinical History: Shortness of breath Findings: Small bilateral pleural effusions are present. There is minimal bibasilar pulmonary edema/ atelectasis. Cardiomediastinal silhouette is stable, with pacemaker device. Bones and soft tissues a re unremarkable. Impression: Small pleural effusions with mild bibasilar pulmonary edema/atelectasis. Reviewed, dictated and finalized at location . Impression: Small pleural effusions with mild bibasilar pulmonary edema/atelectasis.
--- NOTE | ~2022-05-02 | XR_ITS ---
Clinical Indication: Shortness of breath AP and lateral views of the chest: Comparison: 12/08/2017 Findings: Small bilateral pleural effusions are present, mild bibasilar pulmonary edema/atelectasis. Cardiomediastinal silhouette is stable, with pacemaker device. Bones and soft tissues are unremarkab le. Impression: Small bilateral pleural effusions with mild bibasilar pulmonary edema/atelectasis. Pacemaker device. Reviewed, dictated and finalized at location M. Impression: Small bilateral pleural effusions with mild bibasilar pulmonary edema/atelectas is. Pacemaker device.
--- NOTE | ~2022-05-02 | US_ITS ---
EXAMINATION: US venous doppler [facility] DATE: 05/03/2022 21:15 INDICATION: Lower limb pain and swelling. TECHNIQUE: Grayscale images without and with compression and Doppler images of the bilateral lower ex tremity veins were obtained. COMPARISON: None FINDINGS: The right common femoral vein, profunda (deep) femoral vein, femoral vein, popliteal vein, peroneal v ein, posterior tibial veins, gastrocnemius vein, and greater saphenous vein are patent. Jerry's cyst. The left common femoral vein, profunda femoral vein, femoral vein, popliteal vein, peroneal vein, pos terior tibial veins, gastrocnemius vein, and greater saphenous vein are patent. IMPRESSION: 1. Patent bilateral lower extremity veins. No evidence of deep venous thrombosis. Reviewed, dictated and finalized at location K. IMPRESSION: 1. Patent bilateral lower extremity veins. No evidence of deep venous thrombos is.
[2022-05-02 09:18] VITALS: BP 97/69; PULSE 91; RESP 22; TEMP 36.4; O2SAT 97
--- NOTE | 2022-05-02 09:18 | ECG_ITS ---
Measurements Intervals [place] Rate: 89 P: NM: 0 QRS: 244 QRSD: 185 T: 72 QT: 442 QTc: 541 Interpretive Statements ELECTRONIC VENTRICULAR PACEMAKER FREQUENT VENTRICULAR PREMATURE COMPLEXES BASELINE ARTIFACT- I, II, AVR, V1, V3 NO FURTHER INTERPRETATION IS POSSIBLE ABNORMAL ECG COMPARED TO ECG 12/06/2021 12:36:10 NO SIGNIFICANT CHANGES Electronically Signed On 05-02-2022 9:25:09 CDT by Jb Lopez D.O.
[2022-05-02 09:24] VITALS: PULSE 89
[2022-05-02 09:58] LABS: Basophils Percent Auto 0.9 % (0.2-1.2); Eosinophils Absolute Auto 0.1 K/mm3 (0-0.3); Eosinophils Percent Auto 2.5 % (0-4.4); Hematocrit 38.5 % (42.0-52.0); Hemoglobin 12.1 g/dL (14.0-18.0); Immature Granulocyte Absolute 0.01 K/mm3 (0.00-0.031); Immature Granulocyte Percent A 0.2 % (0-0.5); Lymphocytes Absolute Auto 0.88 K/mm3 (0.9-3.2); Mean Corpuscular HGB Conc 31.4 g/dl (32-36); Mean Corpuscular Hemoglobin 32.6 pg (26-34); Mean Corpuscular Volume 103.8 fl (80-100); Mean Platelet Volume 11.1 fl (7.4-10.4); Monocytes Absolute Auto 0.7 K/mm3 (0.1-0.6); Monocytes Percent Auto 15.5 % (2.6-8.5); Neutrophils Absolute Auto 2.7 K/mm3 (1.3-6.7); Neutrophils Percent Auto 60.9 % (45.5-73.1); Platelet Count Result 113 k/mm3 (150-375); Red Blood Count 3.71 M/mm3 (4.6-6.20); Red Cell Distribution Width 17.3 % (11.5-14.5); White Blood Count 4.4 K/mm3 (4.5-10.0)
[2022-05-02] MEDS: ASPIRIN 81 MG CHEWABLE TABLET 324 MG PO (10:06)
[2022-05-02 10:09] LABS: Alanine Aminotransferase 43 U/L (6-50); Albumin Level 3.6 g/dL (3.5-5.1); Alkaline Phosphatase 270 U/L (38-126); Anion Gap 4 mmol/L (8-16); Aspartate Amino Transferase 48 U/L (17-59); Bilirubin,Total 0.7 mg/dL (0.2-1.3); Blood Urea Nitrogen 34 mg/dL (9-20); Calcium 8.5 mg/dL (8.4-10.2); Carbon Dioxide 36 mmol/L (22-30); Chloride 94 mmol/L (98-107); Estimated CRCL calculation 55 ml/min; Estimated Glomerular Filt Rate > 60; Glucose 80 mg/dL (65-110); Lipase 95 U/L (23-300); Potassium 4.4 mmol/L (3.4-5.0); Sodium 134 mmol/L (137-145)
[2022-05-02 10:10] LABS: INR 1.4; Prothrombin Time 16.6 Seconds (11.1-14.7)
[2022-05-02 10:11] LABS: Partial Thromboplastin Time 28.8 SECONDS (22.3-36.8)
[2022-05-02] MEDS: FUROSEMIDE INJ 40 MG/4 ML VIAL IV PUSH ×2 (10:36→18:55)
--- NOTE | 2022-05-02 10:39 | ED.WEAKNESS ---
HPI - Weakness General Chief complaint: Weakness Stated complaint: Unspecified Time Seen by Provider: 05/02/22 09:37 History of Present Illness HPI Narrative: Patient states that over the last 2 weeks, he has been noticing increasing dyspnea, swelling to his lower extremities, worse when he lays flat, he is already on a water pill and a blood thinner. He does have an extensive cardiac history. He feels weaker than usual. No overt chest pain. Related Data Home Medications Medication Instructions Recorded Confirmed aspirin 81 mg tablet,delayed 81 mg PO DAILY 03/18/22 05/02/22 release (Adult Low Dose Aspirin) atorvastatin 80 mg tablet 80 mg PO QHS 03/18/22 05/02/22 furosemide 40 mg tablet 40 mg PO BID 03/18/22 05/02/22 losartan 25 mg tablet 25 mg PO DAILY 03/18/22 05/02/22 metoprolol succinate 25 mg 50 mg PO DAILY 03/18/22 05/02/22 tablet,extended release 24 hr Allergies Allergy/AdvReac Type Severity Reaction Status Date / Time No Known Allergies Allergy Verified 05/02/22 12:43 Review of Systems Review of Systems: CONST: No fever. HEENT: No sore throat C/V: No chest pain RESP: Dyspnea GI: No abdominal pain : No dysuria. M/S: No joint pain. SKIN: No rash. NEURO: [No headache or focal numbness or weakness] PSYCH: [No depression] [facility] Past Medical History Medical History Atrial fibrillation CAD (coronary artery disease) CHF (congestive heart failure) Diverticulitis GI (gastrointestinal bleed) Lower extremity edema Mixed hyperlipidemia Rectal bleeding Umbilical hernia Surgical History Surgical History (Updated 05/02/22 @ 17:02 by Adilene Kwan NP) History of colonoscopy with polypectomy History of heart artery stent (~12/2017) stents x 2 History of permanent cardiac pacemaker placement History of tonsillectomy and adenoidectomy Family History Family History Daughter Family history of lung cancer Grandparent Cerebrovascular accident Social History Social History Social History: Surrogate medical decision maker: Isatu Moore, spouse. Code status: Full code. Smoking status: Never smoker Alcohol intake: current Drinks per week: 7 Substance use: never Lack of Transportation: No Lack of Food: Never True Current Housing: I Have Housing Concerned About Future Housing: No Difficulty Paying Gas/Electric Bills: No Difficulty Paying for Meds: YES Currently Unemployed: No Education: Trade/Vocational Certificate Difficulty w/ Childcare or Family Care: No Additional living arrangements comments: The patient lives with his in [place]. Additional occupation/education comments: Retired from [employer], played [employer]. Spiritual care concerns: No Exam Narrative: EXAMINATION OF ORGAN SYSTEMS/BODY AREAS: Constitutional: Vital signs per nursing GENERAL:[No acute distress, non-toxic appearing.] HEAD: Normal with no signs of head trauma. EYES: EOMI, conjunctiva normal ENT: Hearing grossly intact LUNGS: Nonlabored breathing. Some crackles bilaterally HEART: [Regular rate and rhythm] ABD: [Soft], [nontender to palpation] EXT: Normal range of motion, bilateral lower extremity edema SKIN: [No rashes or lesions.] NEURO: [Alert and oriented x 3. No gross focal sensory or strength deficits.] PSYCH: Normal affect Course Vital Signs Vital signs: Vital Signs Temperature 97.6 F 05/02/22 09:18 Pulse Rate 91 05/02/22 09:18 Respiratory Rate 22 H 05/02/22 09:18 Blood Pressure 97/69 L 05/02/22 09:18 Pulse Oximetry 97 05/02/22 09:18 Oxygen Delivery Room Air 05/02/22 09:18 Temperature 96.2 F L 05/02/22 12:44 Pulse Rate 60 05/02/22 12:44 Respiratory Rate 22 H 05/02/22 12:44 Blood Pressure 115/82 05/02/22 12:44 Pulse Oximetry 99 05/02/22
[2022-05-02 10:55] LABS: NT Pro B Type Natriuretic Pept 8750 pg/mL (19.9-100); Troponin I 0.014 ng/mL (0.000-0.034)
--- NOTE | 2022-05-02 12:04 | PC.NURSE ---
Fluid Restriction to be determined by hospitalist.
[2022-05-02 12:26] VITALS: BMI 25.8
--- NOTE | 2022-05-02 12:34 | ADMGEN ---
This patient, Lizandro Moore, was admitted to 3 [facility] Surg Room 328-01. Patient/family oriented to hospital policies and general routines including ID bracelet, bed and alarms, visiting hours, pain management, procedures, bathroom and other care routines, personal items, smoking policy, room service/diet, and visiting hours. Information on how to activate the Rapid Response Team has been discussed. Patient/Family are encouraged to report perceived risks to care and to ask questions if they do not understand what they are told or what they should do.
[2022-05-02 12:44] VITALS: BP 115/82; PULSE 60; RESP 22; TEMP 35.7; O2SAT 99
[2022-05-02 13:04] LABS: Troponin I 0.022 ng/mL (0.000-0.034)
--- NOTE | 2022-05-02 14:17 | PM.IMHP ---
H&P: HPI History of Present Illness Date/Time: 05/02/22 14:17 Chief Complaint: Weakness and edema Narrative: This is an 86-year-old male patient who does have a history of congestive heart failure. The patient has been short of breath with exertion and having orthopnea as well. He has increased edema to his lower extremity even though he has been taking his routine Lasix. The patient has been progressively more short of breath over the last 2 weeks. The patient is too short of breath to continue with any type of activities of daily living. His H&H is 12.1 and 38.5 which is comparable to his last reading last month. Sodium is 134. Cardiac enzymes negative x3. BNP 8750. The patient was given aspirin and Lasix in the emergency room. The patient stated he is already starting to feel much better. Chest x-ray was read as small bilateral pleural effusions with mild bibasilar pulmonary edema atelectasis pacemaker device. The patient is being admitted to observation status on the date of service of 05/02/2022. Review of Systems Review of Systems: All systems reviewed & are unremarkable except as noted in HPI and below Constitutional: Constitutional: Reports as per HPI and Reports no additional constitutional complaints Eyes: Eyes: Reports as per HPI and Reports no additional eye complaints ENT: Reports system reviewed and no additional complaints, except as documented and Reports Normal hearing present Cardiovascular: Cardiovascular: Reports no additional cardiovascular complaints Respiratory: Respiratory: Reports no additional respiratory complaints and Reports no additional respiratory complaints Gastrointestinal: Gastrointestinal: Reports as per HPI and Reports no additional gastrointestinal complaints Musculoskeletal: Musculoskeletal: Reports no additional musculoskeletal complaints Integumentary/Breasts: Skin/Breast: Reports system reviewed and no additional complaints, except as docu and Reports as per HPI Neurologic: Reports system reviewed and no additional complaints, except as documented, Reports as per HPI and Reports Normal hearing present Psychiatric: Psychiatric: Reports no additional psychiatric complaints and Reports as per HPI Endocrine: Endocrine: Reports no additional endocrine complaints Hematologic/Lymphatic: Hematologic/Lymphatic: Reports no additional hematologic/lymphatic complaints Allergic/Immunologic: Allergic/Immunologic: Reports no additional allergic/immunologic complaints [facility] Past Medical History Medical History Atrial fibrillation CAD (coronary artery disease) CHF (congestive heart failure) Diverticulitis GI (gastrointestinal bleed) Lower extremity edema Mixed hyperlipidemia Rectal bleeding Umbilical hernia Surgical History Surgical History (Updated 05/02/22 @ 17:02 by Adilene Kwan NP) History of colonoscopy with polypectomy History of heart artery stent (~12/2017) stents x 2 History of permanent cardiac pacemaker placement History of tonsillectomy and adenoidectomy Family History Family History Daughter Family history of lung cancer Grandparent Cerebrovascular accident Social History Social History Social History: Surrogate medical decision maker: Isatu Moore, spouse. Code status: Full code. Smoking status: Never smoker Alcohol intake: current Drinks per week: 7 Substance use: never Lack of Transportation: No Lack of Food: Never True Current Housing: I Have Housing Concerned About Future Housing: No Difficulty Paying Gas/Electric Bills: No Difficulty Paying for Meds: YES Currently Unemployed: No Education: Trade/Vocational Certificate Difficulty w/ Childcare or Family Care: No Additional living arrangements comments: The patient lives with his in [place]. Additional
[2022-05-02 16:03] LABS: Troponin I 0.014 ng/mL (0.000-0.034)
[2022-05-02] MEDS: FERROUS SULFATE 324 MG TABLET PO (18:55)
[2022-05-02 19:46] VITALS: O2SAT 99
[2022-05-02] MEDS: ATORVASTATIN 40 MG TABLET 80 MG PO (20:11)
[2022-05-02 21:22] VITALS: BP 105/70; PULSE 58; RESP 18; TEMP 35.7; O2SAT 99
--- NOTE | 2022-05-03 | ECHO_ITS ---
Patient Info Name: Lziandro Moore Age: 86 years : 1935 Gender: Male Ht: 74 in Wt: 200 lbs BSA: 2.18 m2 HR: 91 bpm BP: 132 / 91 mmHg Technical Quality: Good Exam Date: 05/03/2022 10:44 AM Exam Location: [facility] Patient Status: Inpatient Admit Date: 05/02/2022 Staff Ordering Physician: Adilene Kwan NP Tank Furnace Operator: Won Dickens RDCS, RT Attending Provider: Danielle Larose MD Referring Physician: Aquiles COOPER; Exam Type: CA echo dop color flow w con Study Info Indications I50.9 - Heart failure, unspecified Complete two-dimensional, color flow and Doppler transthoracic echocardiogram is performed with contrast to opacify the left ventricle and to improve the deliniation of the left ventricle endocardial borders. Summary 1. Definity contrast administered improved wall motion interpretation. 2. Left ventricular chamber dimension is severely enlarged. 3. Left ventricular systolic function is severely reduced, estimated at 15-20%. 4. Left ventricular septal wall motion is abnormal with septal motion related to bundle branch block. 5. The left ventricular diastolic function is abnormal. 6. E/e' 16 is elevated. 7. Global longitudinal strain is abnormal at -4.5%. 8. Linear artifact in right ventricle suggestive of catheter(s), pacemaker lead(s), or ICD lead(s). 9. Left atrial chamber dimension is moderately enlarged. 10. Right atrial chamber dimension is moderately enlarged. 11. Linear artifact in the right atrium suggestive of catheter(s), pacemaker lead(s), or ICD lead(s). 12. There is mild aortic valve sclerosis. 13. The mitral valve has mildly calcified annulus. 14. There is moderate mitral valve regurgitation. 15. There is mild to moderate tricuspid valve regurgitation. 16. No pulmonary hypertension, estimated pulmonary arterial systolic pressure is 39 mmHg. 17. The aortic root size at the sinus of Valsalva is borderline dilated at 4.1 cm. 18. Dilated inferior vena cava with >50% collapse upon inspiration consistent with elevated right atrial pressure, 10 mmHg. Left Ventricle E/e' 16 is elevated. Global longitudinal strain is abnormal at -4.5%. Definity contrast administered improved wall motion interpretation. Left ventricular chamber dimension is severely enlarged. Left ventricular systolic function is severely reduced, estimated at 15-20%. Left ventricular septal wall motion is abnormal with septal motion related to bundle branch block. The left ventricular diastolic function is abnormal. Right Ventricle Right ventricular systolic function is normal based on normal TAPSE 2.1 cm. Linear artifact in right ventricle suggestive of catheter(s), pacemaker lead(s), or ICD lead(s). Right ventricular chamber dimension is not well visualized. Left Atria Left atrial chamber dimension is moderately enlarged. Right Atria Linear artifact in the right atrium suggestive of catheter(s), pacemaker lead(s), or ICD lead(s). Right atrial chamber dimension is moderately enlarged. Aortic Valve The aortic valve is trileaflet. There is mild aortic valve sclerosis. There is no aortic valve stenosis. There is mild aortic valve regurgitation. Pulmonic Valve There is no pulmonic regurgitation. Mitral Valve The mitral valve has mildly calcified annulus. There is no mitral valve stenosis. There is moderate mitral valve regurgitation. Tricuspid Valve There is mild to moderate tricuspid valve regurgitation. No pulmonary hypertension, estimated pulmonary a
[2022-05-03 06:00] VITALS: BP 132/91; PULSE 70; RESP 16; TEMP 35.9; O2SAT 97
[2022-05-03 06:11] LABS: Basophils Percent Auto 0.9 % (0.2-1.2); Eosinophils Absolute Auto 0.1 K/mm3 (0-0.3); Eosinophils Percent Auto 2.1 % (0-4.4); Hematocrit 39.5 % (42.0-52.0); Hemoglobin 12.7 g/dL (14.0-18.0); Immature Granulocyte Absolute 0.01 K/mm3 (0.00-0.031); Immature Granulocyte Percent A 0.2 % (0-0.5); Immature Platelet Fraction Pct 6.7 % (0.9-11.2); Lymphocytes Absolute Auto 1.08 K/mm3 (0.9-3.2); Lymphocytes Percent Auto 25.2 % (18.3-44.2); Mean Corpuscular HGB Conc 32.2 g/dl (32-36); Mean Corpuscular Hemoglobin 32.4 pg (26-34); Mean Corpuscular Volume 100.8 fl (80-100); Mean Platelet Volume 11.3 fl (7.4-10.4); Monocytes Absolute Auto 0.6 K/mm3 (0.1-0.6); Monocytes Percent Auto 14.7 % (2.6-8.5); Neutrophils Absolute Auto 2.4 K/mm3 (1.3-6.7); Neutrophils Percent Auto 56.9 % (45.5-73.1); Platelet Count Result 114 k/mm3 (150-375); Red Blood Count 3.92 M/mm3 (4.6-6.20); Red Cell Distribution Width 17.5 % (11.5-14.5); White Blood Count 4.3 K/mm3 (4.5-10.0)
[2022-05-03 06:27] LABS: Alanine Aminotransferase 43 U/L (6-50); Albumin Level 3.7 g/dL (3.5-5.1); Alkaline Phosphatase 290 U/L (38-126); Anion Gap 2 mmol/L (8-16); Aspartate Amino Transferase 43 U/L (17-59); Blood Urea Nitrogen 33 mg/dL (9-20); Calcium 8.5 mg/dL (8.4-10.2); Carbon Dioxide 38 mmol/L (22-30); Chloride 94 mmol/L (98-107); Estimated CRCL calculation 55 ml/min; Estimated Glomerular Filt Rate > 60; Glucose 97 mg/dL (65-110); Magnesium 1.9 mg/dL (1.6-2.3); Potassium 4.3 mmol/L (3.4-5.0); Sodium 134 mmol/L (137-145)
[2022-05-03] MEDS: ENOXAPARIN 40 MG/0.4 ML SYRINGE SUB-Q (08:04)
[2022-05-03] MEDS: FUROSEMIDE INJ 40 MG/4 ML VIAL IV PUSH ×2 (08:04→17:02)
[2022-05-03 08:05] VITALS: PULSE 78
[2022-05-03] MEDS: FERROUS SULFATE 324 MG TABLET PO ×2 (08:05→17:02)
[2022-05-03] MEDS: ASPIRIN 81 MG ENTERIC TABLET PO (08:05)
[2022-05-03] MEDS: LOSARTAN POTASSIUM 25 MG TABLET PO (08:05)
[2022-05-03] MEDS: METOPROLOL SUCCINATE EXT REL 50 MG TABCR PO (08:05)
[2022-05-03 08:28] LABS: Free T4 Free Thyroxine Reflex 1.16 ng/dL (0.78-2.19)
[2022-05-03 09:16] LABS: Folic Acid 9.7 ng/mL (2.76->20)
[2022-05-03 10:48] LABS: Total Triiodothyronine (T3) 0.84 NG/ML (0.97-1.69)
[2022-05-03] MEDS: PERFLUTREN LIPID MICROSPHERES 1.5 ML VIAL DILUTED TO 10 ML TOTAL VOLUME IV PUSH (11:05)
--- NOTE | 2022-05-03 11:05 | IVDEFINITY ---
Prior to administration of IV Definity the patient was educated on the risks and benefits of the imaging enhancing agent including potential adverse side effects. The patient verbalized understanding. Allergies were verified. No exclusion criteria were identified and at least one of the following inclusion criteria were met: 1) physician request, 2) patient technically difficult to image (per the [place] [employer] guidelines of two or more segments not discernable within the apical view), or 3) questionable left ventricular function. ?
[2022-05-03 14:00] VITALS: BP 134/52; PULSE 74; RESP 18; TEMP 36.1; O2SAT 92
--- NOTE | 2022-05-03 16:46 | PM.IMPN ---
Progress Note: A&P Assessment and Plan (1) CHF (congestive heart failure): Code(s): I50.9 - Heart failure, unspecified Status: Chronic Assessment and Plan: His ejection fraction was noted to be 10-15% on 12/11/2017. He follows with [facility] Technician. He is on Metoprolol and Losartan. He is on lasix at home and has been compliant. CXR shows small bilateral pleural effusions with bibasilar pulmonary edema. BNP was 8750. Patient has been started on IV Lasix. Voiding well. I&O values are unreliable. Continue with IV Lasix. Continue fluid restriction. Echocardiogram has been repeated. (2) Atrial fibrillation: Code(s): I48.91 - Unspecified atrial fibrillation Status: Chronic Assessment and Plan: Patient has atrial fibrillation. Currently paced rhythm. Patient states he no longer takes Eliquis code as he could no longer afford this. Consider starting Coumadin but will discuss with Cardiology 1st. He was seen here last November for a GI bleed but was not on medications at that time. Colonoscopy did show diverticulosis with evidence of recent bleeding as well as internal hemorrhoids. Patient's hemoglobin is in the 12 range and stable currently. Continue metoprolol. Discussed with Cardiology about anticoagulation. (3) Mixed hyperlipidemia: Code(s): E78.2 - Mixed hyperlipidemia Status: Chronic Assessment and Plan: LFT stable. Continue atorvastatin. Alk-phos level is elevated which has been noted recently but his PSA is 3.1. Renal function, calcium and protein levels are within normal limits making multiple myeloma unlikely. (4) Anemia: Qualifiers: Anemia type: iron deficiency Iron deficiency anemia type: chronic blood loss Qualified Code(s): D50.0 - Iron deficiency anemia secondary to blood loss (chronic) Code(s): D64.9 - Anemia, unspecified Status: Acute Assessment and Plan: Hemoglobin close to normal. Continue iron. (5) CAD (coronary artery disease): Code(s): I25.10 - Atherosclerotic heart disease of [place] coronary artery without angina pectoris Status: Chronic Assessment and Plan: Stable. Troponin negative x3. Continue medical management. Subjective Date/time seen: 05/03/22 16:46 Interval history: 86yo male with CAD, AFib, CHF and PM in place here for shortness of breath. Patient denies feeling short of breath today. He does have dyspnea on exertion when walking to the bathroom. No chest pain. No nausea or vomiting. He slept poorly last night. He denies feeling dizzy today but did feel dizzy last night. He has chronic atrial fibrillation but is not on anticoagulation. He states he stopped Eliquis because could not afford the medication. Exam Narrative: AF 96.9 134/52 74 18 92% ra Gen - NARD Chest - L>R bibasilar inspiratory crackles. nml RR CV - irregularly irregular. Abd - Soft, NT/ND, Positive BS Ext - 2+ pedal edema. +Mary Kate's Psych - Nml mood but odd affect Skin - Warm and dry Objective Data Vital Signs Vital Signs: Vital Signs - 24 hr 05/02/22 19:46 05/02/22 21:22 05/03/22 06:00 Temperature 96.2 F L 96.7 F L Pulse Rate 58 L 70 Respiratory Rate 18 16 Blood Pressure 105/70 132/91 H Pulse Oximetry 99 99 97 Oxygen Delivery Room Air 05/03/22 08:05 05/03/22 08:00 05/03/22 14:00 Temperature 96.9 F L Pulse Rate 78 74 Respiratory Rate 18 Blood Pressure 134/52 L Pulse Oximetry 92 Oxygen Delivery Room Air Intake/Output Intake/Output: Intake & Output 04/30/22 05/01/22 05/02/22 05/03/22 23:59 23:59 23:59 23:59 Intake Total 457 852 Balance 457 852 Meds/Results Medications: Active Medications Generic Name Dose Route Start Last Admin Trade Name Freq PRN Reason Stop Dose Admin Aspirin 81 mg 05/03/22 09:00 05/03/22 08:05 Aspirin 81 Mg Enteric Tablet PO 81 mg DAILY SHANE Administration Atorvastatin Calcium 80 mg 03
[2022-05-03 20:00] VITALS: PULSE 76; RESP 16; O2SAT 97
[2022-05-03] MEDS: ATORVASTATIN 40 MG TABLET 80 MG PO (20:04)
[2022-05-03 21:18] VITALS: BP 101/52; PULSE 76; RESP 16; TEMP 35.9; O2SAT 97
[2022-05-04] VITALS (7 sets, daily range): BP systolic 99–127; BP diastolic 68–74; PULSE 56–60; RESP 14–20; TEMP 35.5–36.3; O2SAT 92–98
[2022-05-04] MEDS: ENOXAPARIN 40 MG/0.4 ML SYRINGE SUB-Q (08:52)
[2022-05-04] MEDS: FUROSEMIDE INJ 40 MG/4 ML VIAL IV PUSH ×2 (08:52→17:05)
[2022-05-04] MEDS: ASPIRIN 81 MG ENTERIC TABLET PO (08:52)
[2022-05-04] MEDS: FERROUS SULFATE 324 MG TABLET PO ×2 (08:52→17:05)
[2022-05-04] MEDS: METOPROLOL SUCCINATE EXT REL 50 MG TABCR PO (08:54)
[2022-05-04] MEDS: MORPHINE SULFATE (*CRX) 2 MG/ML INJ 1 MG IV PUSH (11:45)
[2022-05-04 11:49] LABS: D Dimer 1.14 ug/mL (<0.48)
--- NOTE | 2022-05-04 14:12 | PM.CNCAR ---
Assessment and Plan Assessment and plan (1) Acute on chronic systolic (congestive) heart failure: Code(s): I50.23 - Acute on chronic systolic (congestive) heart failure Status: Acute Assessment and Plan: Agree with intermittent IV diuresis. Please monitor strict I/Os, daily standing weights. Continue with Losartan and Toprol. Not able to start patient on ARNI and SGLT2 inhibitor as they are cost prohibitive. Will need follow up with Dr. Patel after hospital discharge. (2) Biventricular ICD (implantable cardioverter-defibrillator) in place: Code(s): Z95.810 - Presence of automatic (implantable) cardiac defibrillator Status: Acute Assessment and Plan: S/p BI V ICD. Underlying rhythm appears to be atrial fibrillation (3) Atrial fibrillation: Code(s): I48.91 - Unspecified atrial fibrillation Status: Chronic Assessment and Plan: Continue Toprol. Can increase dose as tolerated to optimize underlying atrial fibrillation rate control. Has not been able to afford Eliquis due to cost. Warfarin would be more cost friendly, however, is not ideal to use in a patient with concerns for medication compliance. Dr. Patel had mentioned evaluation for possible left atrial appendage closure, which he was going to discuss with patient at his next visit with him. At this time, will defer anticoagulation for his atrial fibrillation to the outpatient setting in follow up visit with Dr. Patel. (4) CAD (coronary artery disease): Code(s): I25.10 - Atherosclerotic heart disease of [place] coronary artery without angina pectoris Status: Chronic Assessment and Plan: Stable. Continue ASA and statin. History of Present Illness History of Present Illness Consult date/time: 05/04/22 14:12 Requesting physician: Alana Kamara DO Consult reason: congestive heart failure Reason For Visit: CHF Exacerbation Narrative: We are consulted for acute on chronic heart failure exacerbation. This is a patient of Dr. Saab. Seen by Dr. Patel in February 2022, follow-up visit with Pilar Pedro on 04/19/2022. Patient has a history of CAD s/p PCI to the proximal-mid LAD, history of HFrEF s/p BI-V ICD 04/2019, history of atrial fibrillation, LBBB, PVCs. In February, Dr. Patel had noted that patient had issues with noncompliance with medications and follow-up visits. Unable to afford Eliquis. At April visit with Pilar, patient reported worsening lower extremity edema, shortness of breath, weakness. She had asked him to increase his Lasix to 40mg BID. Interrogation of his ICD showed prolonged episodes of atrial fibrillation/atrial tachycardia. Toprol was increased to 50mg QD. Since patient cannot afford his Eliquis, Dr. Patel had mentioned evaluatin for possible left atrial appendage closure, which he was going to discuss with patient at his next visit. Not able to start patient on ARNI and SGLT2 inhibitor as they are cost prohibitive. Patient presented to [facility] 05/02 for shortness of breath, orthopnea, worsening lower extremity edema. Admitted for acute on chronic heart failure exacerbation. Patient reports full compliance to his medications at home. Echocardiogram done this admission shows LVEF 15-20%, moderate MR, mild-moderate TR. NT pro BNP on admission 8750. Review of Systems Review of Systems: All systems reviewed & are unremarkable except as noted in HPI and below (HPI) [facility] Past Medical History Medical History Atrial fibrillation CAD (coronary artery disease) CHF (congestive heart failure) Diverticulitis GI (gastrointestinal bleed) Lower extremity edema Mixed hyperlipidemia Rectal bleeding Umbilical hernia Surgical History Surgical History History of colonoscopy with polypectomy History of heart artery stent (~12/2017) stents x 2 History of permanent cardiac pacemaker
--- NOTE | 2022-05-04 15:52 | PC.NURSE ---
On 05/04/22, the student, Faby Jara, provided care and completed [facility] documentation on this patient. I have reviewed the student's documentation and agree with the findings.
--- NOTE | 2022-05-04 17:27 | PM.IMPN ---
Progress Note: A&P Assessment and Plan (1) CHF (congestive heart failure): Code(s): I50.9 - Heart failure, unspecified Status: Chronic Assessment and Plan: His ejection fraction was noted to be 10-15% on 12/11/2017. He follows with Plate Setter. He is on Metoprolol and Losartan. He is on lasix at home and has been compliant. CXR shows small bilateral pleural effusions with bibasilar pulmonary edema. BNP was 8750. Patient has been started on IV Lasix. Voiding well. I&O values are unreliable. Transition to oral Lasix and stop fluid restriction. (2) Atrial fibrillation: Code(s): I48.91 - Unspecified atrial fibrillation Status: Chronic Assessment and Plan: Patient has atrial fibrillation. Currently paced rhythm. Patient states he no longer takes Eliquis code as he could no longer afford this. Consider starting Coumadin but will discuss with Cardiology 1st. He was seen here last November for a GI bleed but was not on medications at that time. Colonoscopy did show diverticulosis with evidence of recent bleeding as well as internal hemorrhoids. Patient's hemoglobin is in the 12 range and stable currently. Continue metoprolol. Discussed with Cardiology about anticoagulation. (3) Mixed hyperlipidemia: Code(s): E78.2 - Mixed hyperlipidemia Status: Chronic Assessment and Plan: LFT stable. Continue atorvastatin. Alk-phos level is elevated which has been noted recently but his PSA is 3.1. Renal function, calcium and protein levels are within normal limits making multiple myeloma unlikely. (4) Anemia: Qualifiers: Anemia type: iron deficiency Iron deficiency anemia type: chronic blood loss Qualified Code(s): D50.0 - Iron deficiency anemia secondary to blood loss (chronic) Code(s): D64.9 - Anemia, unspecified Status: Acute Assessment and Plan: Hemoglobin close to normal. Continue iron. (5) CAD (coronary artery disease): Code(s): I25.10 - Atherosclerotic heart disease of [place] coronary artery without angina pectoris Status: Chronic Assessment and Plan: Stable. Troponin negative x3. Continue medical management. Plan DVT prophylaxis with SCDs GI prophylaxis not indicated Code status full code Subjective Date/time seen: 05/04/22 17:27 Interval history: 86yo male with CAD, AFib, CHF and PM in place here for shortness of breath. Patient states he feels much better today than yesterday. Does occasionally experience dizzy feelings when trying to sleep. He is afraid he might if he falls asleep. States his shortness of breath is improved. He denies chest pain. He did have an episode earlier today where he was somewhat short of breath and felt anxious. Review of Systems Review of Systems: 12 point review of systems was assessed and was negative except as noted in the HPI Exam Narrative: General: No acute distress, alert and oriented per baseline HEENT: Atraumatic, normocephalic, mucous membranes moist CV: Regular rate and rhythm, S1, S2 Lungs: Somewhat diminished at bases with scattered crackles, moderate air entry throughout, no wheeze Abdomen: Soft, nontender, nondistended Extremities: Normal to inspection, 1+ pitting edema bilaterally noted Skin: No rashes noted, no lesions or wounds seen Psych: Euthymic, normal affect Objective Data Vital Signs Vital Signs: Vital Signs - 24 hr 05/03/22 21:18 05/03/22 20:00 05/04/22 05:38 Temperature 96.7 F L 97 F L Pulse Rate 76 76 58 L Respiratory Rate 16 16 14 Blood Pressure 101/52 L 99/68 L Pulse Oximetry 97 97 92 Oxygen Delivery Room Air Oxygen Flow Rate 05/04/22 08:54 05/04/22 09:12 05/04/22 11:01 Temperature Pulse Rate 60 Respiratory Rate Blood Pressure Pulse Oximetry 98 92 Oxygen Delivery Nasal Cannula Room Air Oxygen Flow Rate 2 05/04/22 14:00 Temperature 97.3 F L Pulse Rate 56 L Res
[2022-05-04] MEDS: ATORVASTATIN 40 MG TABLET 80 MG PO (20:47)
[2022-05-05 03:56] VITALS: BP 103/73; PULSE 57; RESP 16; TEMP 35.9; O2SAT 91
--- NOTE | 2022-05-05 08:26 | PM.PNCARD ---
Progress Note: A&P Assessment and Plan (1) Acute on chronic systolic (congestive) heart failure: Code(s): I50.23 - Acute on chronic systolic (congestive) heart failure Status: Acute Assessment and Plan: Improving, but remains volume overloaded on exam. Continue with intermittent IV diuresis. Please monitor strict I/Os, daily standing weights. 1500cc fluid restriction Continue with Losartan and Toprol. Not able to start patient on ARNI and SGLT2 inhibitor as they are cost prohibitive. Will need follow up with Dr. Patel after hospital discharge. (2) Biventricular ICD (implantable cardioverter-defibrillator) in place: Code(s): Z95.810 - Presence of automatic (implantable) cardiac defibrillator Status: Acute Assessment and Plan: S/p BI V ICD. Underlying rhythm appears to be atrial fibrillation (3) Atrial fibrillation: Code(s): I48.91 - Unspecified atrial fibrillation Status: Chronic Assessment and Plan: Continue Toprol. Can increase dose as tolerated to optimize underlying atrial fibrillation rate control. Has not been able to afford Eliquis due to cost. Warfarin would be more cost friendly, however, is not ideal to use in a patient with concerns for medication compliance. Dr. Patel had mentioned evaluation for possible left atrial appendage closure, which he was going to discuss with patient at his next visit with him. At this time, will defer anticoagulation for his atrial fibrillation to the outpatient setting in follow up visit with Dr. Patel. (4) CAD (coronary artery disease): Code(s): I25.10 - Atherosclerotic heart disease of [place] coronary artery without angina pectoris Status: Chronic Assessment and Plan: Stable. Continue ASA and statin. Subjective Date/time seen: 05/05/22 08:26 Cardiology follow up for CHF He is feeling better today. Less short of breath at rest but does still have dyspnea with exertion. His lower extremity swelling persists. No chest pain or palpitations. Review of Systems Review of Systems: All systems reviewed & are unremarkable except as noted in HPI and below (HPI) Exam Const: General: no acute distress HENMT: Mouth: Yes moist mucous membranes Eyes: General: appearance normal, both eyes and all related structures Sclera: sclerae normal Neck: Neck: supple Resp: Effort & Inspection: normal respiratory effort Auscultation: rales and diminished lung sounds Cardio: Rate: regular rate Rhythm: regular rhythm Heart sounds: Murmur heart sound present systolic Other: 2+ bilateral lower extremity edema Skin: General skin exam: normal color Neuro: Speech: normal speech Psych: Mental Status: mental status grossly normal Affect: normal affect Objective Data Vital Signs Vital Signs: Vital Signs - 24 hr 05/04/22 08:54 05/04/22 09:12 05/04/22 11:01 Temperature Pulse Rate 60 Respiratory Rate Blood Pressure Pulse Oximetry 98 92 Oxygen Delivery Nasal Cannula Room Air Oxygen Flow Rate 2 05/04/22 14:00 05/04/22 22:00 05/04/22 20:00 Temperature 36.3 C L 35.5 C L Pulse Rate 56 L 56 L 56 L Respiratory Rate 20 20 20 Blood Pressure 127/70 112/74 Pulse Oximetry 92 93 93 Oxygen Delivery Room Air Oxygen Flow Rate 05/05/22 03:56 Temperature 35.9 C L Pulse Rate 57 L Respiratory Rate 16 Blood Pressure 103/73 Pulse Oximetry 91 Oxygen Delivery Oxygen Flow Rate Intake/Output Intake/Output: Intake & Output 05/02/22 05/03/22 05/04/22 05/05/22 23:59 23:59 23:59 23:59 Intake Total 457 1492 950 Output Total 200 125 Balance 457 1492 750 -125 Meds/Results Medications: Active Medications Generic Name Dose Route Start Last Admin Trade Name Gary PRN Reason Stop Dose Admin Aspirin 81 mg 05/03/22 09:00 05/04/22 08:52 Aspirin 81 Mg Enteric Tablet PO 81 mg DAILY SHANE Administration Atorvastatin Calcium 80 mg 05/02/22 21:00 05/04/22
[2022-05-05] MEDS: FUROSEMIDE INJ 40 MG/4 ML VIAL IV PUSH ×2 (08:43→17:26)
[2022-05-05] MEDS: LOSARTAN POTASSIUM 25 MG TABLET PO (08:43)
[2022-05-05] MEDS: ENOXAPARIN 40 MG/0.4 ML SYRINGE SUB-Q (08:43)
[2022-05-05] MEDS: FERROUS SULFATE 324 MG TABLET PO ×2 (08:43→17:26)
[2022-05-05] MEDS: METOPROLOL SUCCINATE EXT REL 50 MG TABCR PO (08:43)
[2022-05-05] MEDS: ASPIRIN 81 MG ENTERIC TABLET PO (08:43)
--- NOTE | 2022-05-05 11:06 | PM.IMPN ---
Progress Note: A&P Assessment and Plan (1) CHF (congestive heart failure): Code(s): I50.9 - Heart failure, unspecified Status: Chronic Assessment and Plan: EF 10-15% on 12/11/2017 Metoprolol, losartan, lasix at home CXR shows small bilateral pleural effusions with bibasilar pulmonary edema. BNP was 8750. I&O values are unreliable. Cont IV diuresis, anticipate home in a few days (2) Atrial fibrillation: Code(s): I48.91 - Unspecified atrial fibrillation Status: Chronic Assessment and Plan: Patient has atrial fibrillation. Currently paced rhythm. Patient states he no longer takes Eliquis code as he could no longer afford this. Consider starting Coumadin but will discuss with Cardiology 1st. He was seen here last November for a GI bleed but was not on medications at that time. Colonoscopy did show diverticulosis with evidence of recent bleeding as well as internal hemorrhoids. Patient's hemoglobin is in the 12 range and stable currently. Continue metoprolol. Discussed with Cardiology about anticoagulation, will defer to Dr Patel outpatient (3) Mixed hyperlipidemia: Code(s): E78.2 - Mixed hyperlipidemia Status: Chronic Assessment and Plan: LFT stable. Continue atorvastatin. Alk-phos level is elevated which has been noted recently but his PSA is 3.1. Renal function, calcium and protein levels are within normal limits making multiple myeloma unlikely. (4) Anemia: Qualifiers: Anemia type: iron deficiency Iron deficiency anemia type: chronic blood loss Qualified Code(s): D50.0 - Iron deficiency anemia secondary to blood loss (chronic) Code(s): D64.9 - Anemia, unspecified Status: Acute Assessment and Plan: Hemoglobin close to normal. Continue iron. (5) CAD (coronary artery disease): Code(s): I25.10 - Atherosclerotic heart disease of [place] coronary artery without angina pectoris Status: Chronic Assessment and Plan: Stable. Troponin negative x3. Continue medical management. Plan DVT prophylaxis with SCDs GI prophylaxis not indicated Code status full code Subjective Date/time seen: 05/05/22 11:06 Interval history: 86yo male with CAD, AFib, CHF and PM in place here for shortness of breath. No overnight events noted. No chest pain or shortness of breath. No nausea, vomiting or diarrhea. No fevers or chills. Review of Systems Review of Systems: 12 point review of systems was assessed and was negative except as noted in the HPI Exam Narrative: General: No acute distress, alert and oriented per baseline HEENT: Atraumatic, normocephalic, mucous membranes moist CV: Regular rate and rhythm, S1, S2 Lungs: Somewhat diminished at bases with scattered crackles, moderate air entry throughout, no wheeze Abdomen: Soft, nontender, nondistended Extremities: Normal to inspection, 1+ pitting edema bilaterally noted Skin: No rashes noted, no lesions or wounds seen Psych: Euthymic, normal affect Objective Data Vital Signs Vital Signs: Vital Signs - 24 hr 05/04/22 14:00 05/04/22 22:00 05/04/22 20:00 Temperature 97.3 F L 96 F L Pulse Rate 56 L 56 L 56 L Respiratory Rate 20 20 20 Blood Pressure 127/70 112/74 Pulse Oximetry 92 93 93 Oxygen Delivery Room Air 05/05/22 03:56 Temperature 96.7 F L Pulse Rate 57 L Respiratory Rate 16 Blood Pressure 103/73 Pulse Oximetry 91 Oxygen Delivery Intake/Output Intake/Output: Intake & Output 05/02/22 05/03/22 05/04/22 05/05/22 23:59 23:59 23:59 23:59 Intake Total 457 1492 950 240 Output Total 200 125 Balance 457 1492 750 115 Meds/Results Medications: Active Medications Generic Name Dose Route Start Last Admin Trade Name Freq PRN Reason Stop Dose Admin Aspirin 81 mg 05/03/22 09:00 05/05/22 08:43 Aspirin 81 Mg Enteric Tablet PO 81 mg DAILY SHANE Administration Atorvastatin Calcium 80 mg
[2022-05-05 14:00] VITALS: BP 115/81; PULSE 74; RESP 18; TEMP 36.1; O2SAT 96
[2022-05-05] MEDS: ATORVASTATIN 40 MG TABLET 80 MG PO (20:43)
[2022-05-05 22:00] VITALS: BP 114/78; PULSE 53; RESP 16; TEMP 35.5; O2SAT 92
[2022-05-06 05:25] VITALS: BP 129/72; PULSE 49; RESP 20; TEMP 35.9; O2SAT 94
--- NOTE | 2022-05-06 08:48 | PM.PNCARD ---
Progress Note: A&P Assessment and Plan (1) Acute on chronic systolic (congestive) heart failure: Code(s): I50.23 - Acute on chronic systolic (congestive) heart failure Status: Acute Assessment and Plan: Improving, but remains volume overloaded on exam. Continue with intermittent IV diuresis. Will increase dose to 60mg b.i.d. Please monitor strict I/Os, daily standing weights. 1500cc fluid restriction CHIDI hose Continue with Losartan and Toprol. Not able to start patient on ARNI and SGLT2 inhibitor as they are cost prohibitive. Will add spironolactone to his regimen Check CXR and BNP in a.m. Will need follow up with Dr. Patel after hospital discharge. (2) Biventricular ICD (implantable cardioverter-defibrillator) in place: Code(s): Z95.810 - Presence of automatic (implantable) cardiac defibrillator Status: Acute Assessment and Plan: S/p BI V ICD. Underlying rhythm appears to be atrial fibrillation (3) Atrial fibrillation: Code(s): I48.91 - Unspecified atrial fibrillation Status: Chronic Assessment and Plan: Continue Toprol. Can increase dose as tolerated to optimize underlying atrial fibrillation rate control. Has not been able to afford Eliquis due to cost. Warfarin would be more cost friendly, however, is not ideal to use in a patient with concerns for medication compliance. Dr. Patel had mentioned evaluation for possible left atrial appendage closure, which he was going to discuss with patient at his next visit with him. At this time, will defer anticoagulation for his atrial fibrillation to the outpatient setting in follow up visit with Dr. Patel. (4) CAD (coronary artery disease): Code(s): I25.10 - Atherosclerotic heart disease of [place] coronary artery without angina pectoris Status: Chronic Assessment and Plan: Stable. Continue ASA and statin. Subjective Date/time seen: 05/06/22 08:48 Cardiology follow up for CHF Still feels short of breath today, has mild conversational dyspnea and HOLDER. No chest pain or palpitations. Lower extremity edema persists. Review of Systems Review of Systems: All systems reviewed & are unremarkable except as noted in HPI and below (HPI) Exam Const: General: no acute distress HENMT: Mouth: Yes moist mucous membranes Eyes: General: appearance normal, both eyes and all related structures Sclera: sclerae normal Neck: Neck: supple Resp: Effort & Inspection: normal respiratory effort Auscultation: rales and diminished lung sounds Cardio: Rate: regular rate Rhythm: regular rhythm Heart sounds: Murmur heart sound present systolic Other: 2+ bilateral lower extremity edema Skin: General skin exam: normal color Neuro: Speech: normal speech Psych: Mental Status: mental status grossly normal Affect: normal affect Objective Data Vital Signs Vital Signs: Vital Signs - 24 hr 05/05/22 14:00 05/05/22 20:00 05/05/22 22:00 Temperature 36.1 C L 35.5 C L Pulse Rate 74 53 L Respiratory Rate 18 16 Blood Pressure 115/81 114/78 Pulse Oximetry 96 92 Oxygen Delivery Room Air 05/06/22 05:25 Temperature 35.9 C L Pulse Rate 49 L Respiratory Rate 20 Blood Pressure 129/72 Pulse Oximetry 94 Oxygen Delivery Intake/Output Intake/Output: Intake & Output 05/03/22 05/04/22 05/05/22 05/06/22 23:59 23:59 23:59 23:59 Intake Total 8726 684 4537 50 Output Total 200 125 125 Balance 1492 750 945 -75 Meds/Results Medications: Active Medications Generic Name Dose Route Start Last Admin Trade Name Freq PRN Reason Stop Dose Admin Aspirin 81 mg 05/03/22 09:00 05/05/22 08:43 Aspirin 81 Mg Enteric Tablet PO 81 mg DAILY SHANE Administration Atorvastatin Calcium 80 mg 05/02/22 21:00 05/05/22 20:43 Atorvastatin 40 Mg Tablet PO 80 mg QHS SHANE Administration Enoxaparin Sodium 40 mg 05/03/22 09:00 05/05/22 08:43 Enoxaparin 40 Mg/0.4 Ml Syringe SUB-
[2022-05-06 08:52] VITALS: PULSE 76
[2022-05-06] MEDS: FUROSEMIDE INJ 40 MG/4 ML VIAL IV PUSH ×2 (08:52→12:29)
[2022-05-06] MEDS: ASPIRIN 81 MG ENTERIC TABLET PO (08:52)
[2022-05-06] MEDS: FERROUS SULFATE 324 MG TABLET PO ×2 (08:52→16:50)
[2022-05-06] MEDS: METOPROLOL SUCCINATE EXT REL 50 MG TABCR PO (08:52)
[2022-05-06] MEDS: LOSARTAN POTASSIUM 25 MG TABLET PO (08:53)
[2022-05-06] MEDS: ENOXAPARIN 40 MG/0.4 ML SYRINGE SUB-Q (08:53)
[2022-05-06 09:58] LABS: Anion Gap 5 mmol/L (8-16); Blood Urea Nitrogen 39 mg/dL (9-20); Calcium 8.5 mg/dL (8.4-10.2); Carbon Dioxide 38 mmol/L (22-30); Chloride 94 mmol/L (98-107); Estimated CRCL calculation 47 ml/min; Estimated Glomerular Filt Rate 58; Glucose 152 mg/dL (65-110); Potassium 3.8 mmol/L (3.4-5.0); Sodium 137 mmol/L (137-145)
[2022-05-06 10:06] LABS: NT Pro B Type Natriuretic Pept 14400 pg/mL (19.9-100)
--- NOTE | 2022-05-06 12:13 | PM.IMPN ---
Progress Note: A&P Assessment and Plan (1) CHF (congestive heart failure): Code(s): I50.9 - Heart failure, unspecified Status: Chronic Assessment and Plan: EF 10-15% on 12/11/2017 Metoprolol, losartan, lasix at home CXR shows small bilateral pleural effusions with bibasilar pulmonary edema. BNP was 8750. I&O values are unreliable. Cont IV diuresis, anticipate home in a few days 1500 ml fluid restriction Appreciate cardiology consultation, chest x-ray and BNP ordered for 05/07 (2) Atrial fibrillation: Code(s): I48.91 - Unspecified atrial fibrillation Status: Chronic Assessment and Plan: Patient has atrial fibrillation. Currently paced rhythm. Patient states he no longer takes Eliquis code as he could no longer afford this. Consider starting Coumadin but will discuss with Cardiology 1st. He was seen here last November for a GI bleed but was not on medications at that time. Colonoscopy did show diverticulosis with evidence of recent bleeding as well as internal hemorrhoids. Patient's hemoglobin is in the 12 range and stable currently. Continue metoprolol. Discussed with Cardiology about anticoagulation, will defer to Dr Patel outpatient (3) Mixed hyperlipidemia: Code(s): E78.2 - Mixed hyperlipidemia Status: Chronic Assessment and Plan: LFT stable. Continue atorvastatin. Alk-phos level is elevated which has been noted recently but his PSA is 3.1. Renal function, calcium and protein levels are within normal limits making multiple myeloma unlikely. (4) Anemia: Qualifiers: Anemia type: iron deficiency Iron deficiency anemia type: chronic blood loss Qualified Code(s): D50.0 - Iron deficiency anemia secondary to blood loss (chronic) Code(s): D64.9 - Anemia, unspecified Status: Acute Assessment and Plan: Hemoglobin close to normal. Continue iron. (5) CAD (coronary artery disease): Code(s): I25.10 - Atherosclerotic heart disease of [place] coronary artery without angina pectoris Status: Chronic Assessment and Plan: Stable. Troponin negative x3. Continue medical management. Plan DVT prophylaxis with SCDs GI prophylaxis not indicated Code status full code Subjective Date/time seen: 05/06/22 12:13 Interval history: 86yo male with CAD, AFib, CHF and PM in place here for shortness of breath. No overnight events noted. No chest pain or shortness of breath. No nausea, vomiting or diarrhea. No fevers or chills. Review of Systems Review of Systems: 12 point review of systems was assessed and was negative except as noted in the HPI Exam Narrative: General: No acute distress, alert and oriented per baseline HEENT: Atraumatic, normocephalic, mucous membranes moist CV: Regular rate and rhythm, S1, S2 Lungs: Scattered bibasilar crackles, diminished air entry, no wheeze Abdomen: Soft, nontender, nondistended Extremities: Normal to inspection, trace pitting edema bilaterally Skin: No rashes noted, no lesions or wounds seen Psych: Dysthymic, flattened affect Objective Data Vital Signs Vital Signs: Vital Signs - 24 hr 05/05/22 14:00 05/05/22 20:00 05/05/22 22:00 Temperature 96.9 F L 96 F L Pulse Rate 74 53 L Respiratory Rate 18 16 Blood Pressure 115/81 114/78 Pulse Oximetry 96 92 Oxygen Delivery Room Air 05/06/22 05:25 05/06/22 08:52 05/06/22 08:00 Temperature 96.6 F L Pulse Rate 49 L 76 Respiratory Rate 20 Blood Pressure 129/72 Pulse Oximetry 94 Oxygen Delivery Room Air Intake/Output Intake/Output: Intake & Output 05/03/22 05/04/22 05/05/22 05/06/22 23:59 23:59 23:59 23:59 Intake Total 4040 977 9962 522 Output Total 200 125 125 Balance 1492 750 945 397 Meds/Results Medications: Active Medications Generic Name Dose Route Start Last Admin Trade Name Freq PRN Reason Stop Dose Admin Aspirin 81 mg 05/03/22 09:00 04/14
[2022-05-06] MEDS: SPIRONOLACTONE 25 MG TABLET PO (12:28)
[2022-05-06 14:00] VITALS: BP 103/79; PULSE 62; RESP 20; TEMP 36.4; O2SAT 94
[2022-05-06] MEDS: FUROSEMIDE INJ 40 MG/4 ML VIAL 60 MG IV PUSH (16:51)
[2022-05-06 20:00] VITALS: PULSE 62; RESP 20; O2SAT 94
[2022-05-06] MEDS: ATORVASTATIN 40 MG TABLET 80 MG PO (20:51)
[2022-05-06 22:00] VITALS: BP 103/70; PULSE 50; RESP 20; TEMP 36.4; O2SAT 90
[2022-05-07 06:00] VITALS: BP 140/125; PULSE 60; RESP 22; TEMP 36.2; O2SAT 92
--- NOTE | 2022-05-07 06:18 | PM.PNCARD ---
Progress Note: A&P Assessment and Plan (1) Atrial fibrillation: Code(s): I48.91 - Unspecified atrial fibrillation Status: Chronic (2) Acute on chronic systolic (congestive) heart failure: Code(s): I50.23 - Acute on chronic systolic (congestive) heart failure Status: Acute (3) Biventricular ICD (implantable cardioverter-defibrillator) in place: Code(s): Z95.810 - Presence of automatic (implantable) cardiac defibrillator Status: Acute Plan 86-year-old man with decompensated heart failure with reduced ejection fraction. Volume status is improving with the current dose of IV furosemide. I am going to give him 1 dose of this morning to see if I can prompt a better diuresis today. Unfortunately he has financial constraints that do not allow him to be transitioned to Entresto. I would hope and expect within the next 24 hours to 48 hours he will be stable enough for discharge. He understands that he has a severe cardiomyopathy that will likely result in ongoing symptoms of some degree of HOLDER because of low cardiac output Bryon Chaudhry MD [facility] Subjective Date/time seen: Date of service: 05/07/22 06:18 Interval history: Follow-up visit in this 86-year-old man with: Coronary artery disease and heart failure with reduced ejection fraction. Patient is being treated with his baseline regimen of losartan, metoprolol and loop diuretics. He reports improvement day by day improvement is somewhat slow. He is less short of breath by his report although in speaking to him he still has some conversational dyspnea. Exam Const: General: comfortable Other: Very pleasant comfortable elderly man HENMT: Mouth: Yes moist mucous membranes Eyes: Sclera: sclerae normal Neck: Neck: supple and no JVD Resp: Effort & Inspection: normal respiratory effort Auscultation: clear to auscultation bilaterally Other: pulmonary rales are not audible today Cardio: Rhythm: abnormal rhythm irregularly irregular GI: GI Palp: Yes Soft to palpation Auscultation: normal bowel sounds Skin: General skin exam: normal color Neuro: Other: Alert and oriented times Extrem: Other: Has bilateral pedal edema Objective Data Vital Signs Vital Signs: Vital Signs - 24 hr 05/06/22 08:52 05/06/22 08:00 05/06/22 14:00 Temperature 36.4 C Pulse Rate 76 62 Respiratory Rate 20 Blood Pressure 103/79 Pulse Oximetry 94 Oxygen Delivery Room Air 05/06/22 20:00 05/06/22 22:00 Temperature 36.4 C Pulse Rate 62 50 L Respiratory Rate 20 20 Blood Pressure 103/70 Pulse Oximetry 94 90 Oxygen Delivery Room Air Intake/Output Intake/Output: Intake & Output 05/04/22 05/05/22 05/06/22 05/07/22 23:59 23:59 23:59 23:59 Intake Total 950 1070 1066 Output Total 200 125 325 Balance 750 940 331 Meds/Results Medications: Active Medications Generic Name Dose Route Start Last Admin Trade Name Freq PRN Reason Stop Dose Admin Aspirin 81 mg 05/03/22 09:00 05/06/22 08:52 Aspirin 81 Mg Enteric Tablet PO 81 mg DAILY SHANE Administration Atorvastatin Calcium 80 mg 05/02/22 21:00 05/06/22 20:51 Atorvastatin 40 Mg Tablet PO 80 mg QHS SHANE Administration Docusate Sodium 100 mg 05/06/22 21:35 Docusate Sodium 100 Mg Capsule PO Q12H PRN Constipation Enoxaparin Sodium 40 mg 05/03/22 09:00 05/06/22 08:53 Enoxaparin 40 Mg/0.4 Ml Syringe SUB-Q 40 mg DAILY SHANE Administration Ferrous Sulfate 324 mg 05/02/22 17:00 05/06/22 16:50 Ferrous Sulfate 324 Mg Tablet PO 324 mg BID SHANE Administration Furosemide 60 mg 05/06/22 17:00 05/06/22 16:51 Furosemide Inj 40 Mg/4 Ml Vial IV PUSH 60 mg BID SHANE Administration Losartan Potassium 25 mg 05/03/22 09:00 05/06/22 08:53 Losartan Potassium 25 Mg Tablet PO 25 mg DAILY SHANE Administration Metoprolol Succinate 50 mg 05/03/22 09:00 05/06/22 08:52 Metoprolol Succinate Ext Rel 50 Mg
[2022-05-07] MEDS: metOLazone 2.5 MG TABLET PO (06:44)
[2022-05-07 07:21] LABS: NT Pro B Type Natriuretic Pept 16200 pg/mL (19.9-100)
[2022-05-07] MEDS: FERROUS SULFATE 324 MG TABLET PO ×2 (08:38→16:25)
[2022-05-07] MEDS: ASPIRIN 81 MG ENTERIC TABLET PO (08:38)
[2022-05-07 08:39] VITALS: PULSE 76
[2022-05-07] MEDS: SPIRONOLACTONE 25 MG TABLET PO (08:39)
[2022-05-07] MEDS: DOCUSATE SODIUM 100 MG CAPSULE PO (08:39)
[2022-05-07] MEDS: METOPROLOL SUCCINATE EXT REL 50 MG TABCR PO (08:39)
[2022-05-07] MEDS: ENOXAPARIN 40 MG/0.4 ML SYRINGE SUB-Q (08:39)
[2022-05-07] MEDS: FUROSEMIDE INJ 40 MG/4 ML VIAL 60 MG IV PUSH ×2 (08:39→16:25)
[2022-05-07] MEDS: LOSARTAN POTASSIUM 25 MG TABLET PO (08:39)
--- NOTE | 2022-05-07 11:01 | PM.IMPN ---
Progress Note: A&P Assessment and Plan (1) CHF (congestive heart failure): Code(s): I50.9 - Heart failure, unspecified Status: Chronic Assessment and Plan: EF 10-15% on 12/11/2017 Metoprolol, losartan, lasix at home CXR 05/02 shows small bilateral pleural effusions with bibasilar pulmonary edema, unchanged on 05/04, 05/05, 05/07 repeat CXRs [place] 8750[place] [address] [place] [address] I&O values are unreliable, torres requested to be placed 05/07 to evaluate response to diuresis, patient refused Cont IV diuresis, increased to lasix 60 mg IV BID 05/06 Cont 1500 ml fluid restriction Clinically improving (2) Atrial fibrillation: Code(s): I48.91 - Unspecified atrial fibrillation Status: Chronic Assessment and Plan: Patient has atrial fibrillation. Currently paced rhythm. Patient states he no longer takes Eliquis code as he could no longer afford this. Consider starting Coumadin but will discuss with Cardiology 1st. He was seen here last November for a GI bleed but was not on medications at that time. Colonoscopy did show diverticulosis with evidence of recent bleeding as well as internal hemorrhoids. Patient's hemoglobin is in the 12 range and stable currently. Continue metoprolol. Discussed with Cardiology about anticoagulation, will defer to Dr Patel outpatient (3) Mixed hyperlipidemia: Code(s): E78.2 - Mixed hyperlipidemia Status: Chronic Assessment and Plan: LFT stable. Continue atorvastatin. Alk-phos level is elevated which has been noted recently but his PSA is 3.1. Renal function, calcium and protein levels are within normal limits making multiple myeloma unlikely. (4) Anemia: Qualifiers: Anemia type: iron deficiency Iron deficiency anemia type: chronic blood loss Qualified Code(s): D50.0 - Iron deficiency anemia secondary to blood loss (chronic) Code(s): D64.9 - Anemia, unspecified Status: Acute Assessment and Plan: Hemoglobin close to normal. Continue iron. (5) CAD (coronary artery disease): Code(s): I25.10 - Atherosclerotic heart disease of [place] coronary artery without angina pectoris Status: Chronic Assessment and Plan: Stable. Troponin negative x3. Continue medical management. Plan DVT prophylaxis with SCDs GI prophylaxis not indicated Code status full code Subjective Date/time seen: 05/07/22 11:01 Interval history: 86yo male with CAD, AFib, CHF and PM in place here for shortness of breath. No overnight events noted. No chest pain or shortness of breath. No nausea, vomiting or diarrhea. No fevers or chills. Patient states he feels significantly better. Minimal shortness of breath with exertion at this time. No conversational dyspnea. He is eager to go home tomorrow. He is adamant he will not use a Torres. Review of Systems Review of Systems: 12 point review of systems was assessed and was negative except as noted in the HPI Exam Narrative: General: No acute distress, alert and oriented per baseline HEENT: Atraumatic, normocephalic, mucous membranes moist CV: Regular rate and rhythm, S1, S2 Lungs: Improved air entry from yesterday, no wheeze, fine bibasilar crackles noted Abdomen: Soft, nontender, nondistended Extremities: Normal to inspection, minimal pitting edema bilaterally Skin: No rashes noted, no lesions or wounds seen Psych: Euthymic, appropriate affect Objective Data Vital Signs Vital Signs: Vital Signs - 24 hr 05/06/22 14:00 05/06/22 20:00 05/06/22 22:00 Temperature 97.6 F 97.6 F Pulse Rate 62 62 50 L Respiratory Rate 20 20 20 Blood Pressure 103/79 103/70 Pulse Oximetry 94 94 90 Oxygen Delivery Room Air 05/07/22 06:00 05/07/22 08:39 05/07/22 08:00 Temperature 97.2 F L Pulse Rate 60 76 Respiratory Rate 22 H Blood Pressure 140/125 H Pulse Oximetry 92 Oxygen Delivery Room Air Intake/Output Intake/Output: Intake
[2022-05-07 11:12] LABS: Basophils Percent Auto 0.8 % (0.2-1.2); Eosinophils Percent Auto 0.8 % (0-4.4); Hematocrit 41.7 % (42.0-52.0); Hemoglobin 13.1 g/dL (14.0-18.0); Immature Granulocyte Absolute 0.02 K/mm3 (0.00-0.031); Immature Granulocyte Percent A 0.4 % (0-0.5); Immature Platelet Fraction Pct 9.6 % (0.9-11.2); Lymphocytes Absolute Auto 0.99 K/mm3 (0.9-3.2); Lymphocytes Percent Auto 19.2 % (18.3-44.2); Mean Corpuscular HGB Conc 31.4 g/dl (32-36); Mean Corpuscular Hemoglobin 32.8 pg (26-34); Mean Corpuscular Volume 104.5 fl (80-100); Mean Platelet Volume 11.8 fl (7.4-10.4); Monocytes Absolute Auto 0.8 K/mm3 (0.1-0.6); Monocytes Percent Auto 14.7 % (2.6-8.5); Neutrophils Absolute Auto 3.3 K/mm3 (1.3-6.7); Neutrophils Percent Auto 64.1 % (45.5-73.1); Platelet Count Result 108 k/mm3 (150-375); Red Blood Count 3.99 M/mm3 (4.6-6.20); Red Cell Distribution Width 18.3 % (11.5-14.5); White Blood Count 5.2 K/mm3 (4.5-10.0)
[2022-05-07 11:27] LABS: Alanine Aminotransferase 35 U/L (6-50); Albumin Level 3.6 g/dL (3.5-5.1); Alkaline Phosphatase 245 U/L (38-126); Anion Gap 8 mmol/L (8-16); Aspartate Amino Transferase 42 U/L (17-59); Bilirubin,Total 1.2 mg/dL (0.2-1.3); Blood Urea Nitrogen 39 mg/dL (9-20); Calcium 8.3 mg/dL (8.4-10.2); Carbon Dioxide 35 mmol/L (22-30); Chloride 94 mmol/L (98-107); Estimated CRCL calculation 51 ml/min; Estimated Glomerular Filt Rate > 60; Glucose 99 mg/dL (65-110); Potassium 3.4 mmol/L (3.4-5.0); Sodium 137 mmol/L (137-145)
[2022-05-07 13:14] VITALS: BP 100/81; PULSE 62; RESP 18; TEMP 36.7; O2SAT 94
[2022-05-07 20:55] VITALS: BP 111/68; PULSE 62; RESP 14; TEMP 36.1; O2SAT 95
[2022-05-07] MEDS: ATORVASTATIN 40 MG TABLET 80 MG PO (20:55)
[2022-05-08 04:18] VITALS: BP 110/72; PULSE 65; RESP 20; TEMP 36.2; O2SAT 92
[2022-05-08 07:26] LABS: Basophils Percent Auto 0.4 % (0.2-1.2); Eosinophils Percent Auto 0.4 % (0-4.4); Hematocrit 38.6 % (42.0-52.0); Hemoglobin 12.3 g/dL (14.0-18.0); Immature Granulocyte Absolute 0.02 K/mm3 (0.00-0.031); Immature Granulocyte Percent A 0.4 % (0-0.5); Lymphocytes Absolute Auto 0.78 K/mm3 (0.9-3.2); Lymphocytes Percent Auto 14.4 % (18.3-44.2); Mean Corpuscular HGB Conc 31.9 g/dl (32-36); Mean Corpuscular Hemoglobin 32.7 pg (26-34); Mean Corpuscular Volume 102.7 fl (80-100); Mean Platelet Volume 11.8 fl (7.4-10.4); Monocytes Absolute Auto 0.7 K/mm3 (0.1-0.6); Monocytes Percent Auto 13.4 % (2.6-8.5); Neutrophils Absolute Auto 3.9 K/mm3 (1.3-6.7); Platelet Count Result 103 k/mm3 (150-375); Red Blood Count 3.76 M/mm3 (4.6-6.20); Red Cell Distribution Width 18.1 % (11.5-14.5); White Blood Count 5.4 K/mm3 (4.5-10.0)
[2022-05-08 07:40] LABS: Alanine Aminotransferase 35 U/L (6-50); Albumin Level 3.5 g/dL (3.5-5.1); Alkaline Phosphatase 223 U/L (38-126); Anion Gap 8 mmol/L (8-16); Aspartate Amino Transferase 38 U/L (17-59); Bilirubin,Total 1.3 mg/dL (0.2-1.3); Blood Urea Nitrogen 44 mg/dL (9-20); Calcium 8.3 mg/dL (8.4-10.2); Carbon Dioxide 38 mmol/L (22-30); Chloride 92 mmol/L (98-107); Estimated CRCL calculation 51 ml/min; Estimated Glomerular Filt Rate > 60; Glucose 105 mg/dL (65-110); Sodium 138 mmol/L (137-145)
[2022-05-08 09:24] VITALS: PULSE 68
[2022-05-08] MEDS: LOSARTAN POTASSIUM 25 MG TABLET PO (09:24)
[2022-05-08] MEDS: FERROUS SULFATE 324 MG TABLET PO (09:24)
[2022-05-08] MEDS: ASPIRIN 81 MG ENTERIC TABLET PO (09:24)
[2022-05-08] MEDS: METOPROLOL SUCCINATE EXT REL 50 MG TABCR PO (09:24)
[2022-05-08] MEDS: SPIRONOLACTONE 25 MG TABLET PO (09:24)
[2022-05-08] MEDS: FUROSEMIDE INJ 40 MG/4 ML VIAL 60 MG IV PUSH (09:29)
--- NOTE | 2022-05-08 10:09 | PM.PNCARD ---
Progress Note: A&P Assessment and Plan (1) CHF (congestive heart failure): Code(s): I50.9 - Heart failure, unspecified Status: Chronic Plan 86-year-old man with atrial fibrillation and decompensated CHF. He is stable enough I believe for discharge at this time. I am going to transition his furosemide back to oral regimen at 80 mg daily. This might be more effective than the lower dose of 40 mg b.i.d.. He has short interval follow-up already scheduled in our office with my partner on 05/18/2022. This appointment should be kept. At that point he will also discuss the options of left atrial appendage occlusion procedures because of his atrial fibrillation and inability to tolerate anticoagulation Bryon Chaudhry MD [facility] Subjective Date/time seen: Date of service: 05/08/22 10:09 Interval history: Follow-up visit in this 86-year-old man with: Atrial fibrillation and decompensated congestive heart failure. Patient has been in the hospital for a number of days diuresing with clinical improvement. He is no longer short of breath. He still has a small amount of a remaining up bipedal edema. He is eager to go home and would like to be considered for discharge today. Exam Const: General: comfortable and no acute distress Other: Very pleasant comfortable elderly man HENMT: Mouth: Yes moist mucous membranes Eyes: General: appearance normal, both eyes and all related structures Sclera: sclerae normal Neck: Neck: supple and no JVD Resp: Effort & Inspection: normal respiratory effort Auscultation: clear to auscultation bilaterally, rales and diminished lung sounds Other: pulmonary rales are not audible today Cardio: Rate: regular rate Rhythm: regular rhythm and abnormal rhythm irregularly irregular Heart sounds: Murmur heart sound present systolic Other: 2+ bilateral lower extremity edema GI: Auscultation: normal bowel sounds Skin: General skin exam: normal color Neuro: Speech: normal speech Other: Alert and oriented times Extrem: Other: Has bilateral pedal edema Psych: Mental Status: mental status grossly normal Affect: normal affect Objective Data Vital Signs Vital Signs: Vital Signs - 24 hr 05/07/22 13:14 05/07/22 20:55 05/07/22 20:00 Temperature 36.7 C 36.1 C L Pulse Rate 62 62 Respiratory Rate 18 14 Blood Pressure 100/81 111/68 Pulse Oximetry 94 95 Oxygen Delivery Room Air 05/08/22 04:18 05/08/22 09:24 Temperature 36.2 C L Pulse Rate 65 68 Respiratory Rate 20 Blood Pressure 110/72 Pulse Oximetry 92 Oxygen Delivery Intake/Output Intake/Output: Intake & Output 05/05/22 05/06/22 05/07/22 05/08/22 23:59 23:59 23:59 23:59 Intake Total 1070 1066 970 240 Output Total 585 806 5254 650 Balance 945 846 -6518 -187 Meds/Results Medications: Active Medications Generic Name Dose Route Start Last Admin Trade Name Freq PRN Reason Stop Dose Admin Aspirin 81 mg 05/03/22 09:00 05/08/22 09:24 Aspirin 81 Mg Enteric Tablet PO 81 mg DAILY SHANE Administration Atorvastatin Calcium 80 mg 05/02/22 21:00 05/07/22 20:55 Atorvastatin 40 Mg Tablet PO 80 mg QHS SHANE Administration Docusate Sodium 100 mg 05/06/22 21:35 05/07/22 08:39 Docusate Sodium 100 Mg Capsule PO 100 mg Q12H PRN Administration Constipation Enoxaparin Sodium 40 mg 05/03/22 09:00 05/08/22 09:25 Enoxaparin 40 Mg/0.4 Ml Syringe SUB-Q Not Given DAILY SHANE Ferrous Sulfate 324 mg 05/02/22 17:00 05/08/22 09:24 Ferrous Sulfate 324 Mg Tablet PO 324 mg BID SHANE Administration Furosemide 60 mg 05/06/22 17:00 05/08/22 09:29 Furosemide Inj 40 Mg/4 Ml Vial IV PUSH 60 mg BID SHANE Administration Losartan Potassium 25 mg 05/03/22 09:00 05/08/22 09:24 Losartan Potassium 25 Mg Tablet PO 25 mg DAILY SHANE Administration Metoprolol Succinate 50 mg 05/03/22 09:00 05/08/22 09:24 Metoprolol Succinate Ext Rel 50 Mg Tabcr
--- NOTE | 2022-05-08 12:34 | PM.IMPN ---
Progress Note: A&P Assessment and Plan (1) CHF (congestive heart failure): Code(s): I50.9 - Heart failure, unspecified Status: Chronic Assessment and Plan: EF 10-15% on 12/11/2017 Metoprolol, losartan, lasix at home CXR 05/02 shows small bilateral pleural effusions with bibasilar pulmonary edema, unchanged on 05/04, 05/05, 05/07 repeat CXRs [place] 8750[place] [address] [place] [address] I&O values are unreliable, torres requested to be placed 05/07 to evaluate response to diuresis, patient refused Cont IV diuresis, increased to lasix 60 mg IV BID 05/06 Cont 1500 ml fluid restriction Clinically improving (2) Atrial fibrillation: Code(s): I48.91 - Unspecified atrial fibrillation Status: Chronic Assessment and Plan: Patient has atrial fibrillation. Currently paced rhythm. Patient states he no longer takes Eliquis code as he could no longer afford this. Consider starting Coumadin but will discuss with Cardiology 1st. He was seen here last November for a GI bleed but was not on medications at that time. Colonoscopy did show diverticulosis with evidence of recent bleeding as well as internal hemorrhoids. Patient's hemoglobin is in the 12 range and stable currently. Continue metoprolol. Discussed with Cardiology about anticoagulation, will defer to Dr Patel outpatient (3) Mixed hyperlipidemia: Code(s): E78.2 - Mixed hyperlipidemia Status: Chronic Assessment and Plan: LFT stable. Continue atorvastatin. Alk-phos level is elevated which has been noted recently but his PSA is 3.1. Renal function, calcium and protein levels are within normal limits making multiple myeloma unlikely. (4) Anemia: Qualifiers: Anemia type: iron deficiency Iron deficiency anemia type: chronic blood loss Qualified Code(s): D50.0 - Iron deficiency anemia secondary to blood loss (chronic) Code(s): D64.9 - Anemia, unspecified Status: Acute Assessment and Plan: Hemoglobin close to normal. Continue iron. (5) CAD (coronary artery disease): Code(s): I25.10 - Atherosclerotic heart disease of [place] coronary artery without angina pectoris Status: Chronic Assessment and Plan: Stable. Troponin negative x3. Continue medical management. Plan DVT prophylaxis with SCDs GI prophylaxis not indicated Code status full code Subjective Date/time seen: 05/08/22 12:34 Objective Data Vital Signs Vital Signs: Vital Signs - 24 hr 05/07/22 13:14 05/07/22 20:55 05/07/22 20:00 Temperature 98.1 F 96.9 F L Pulse Rate 62 62 Respiratory Rate 18 14 Blood Pressure 100/81 111/68 Pulse Oximetry 94 95 Oxygen Delivery Room Air 05/08/22 04:18 05/08/22 09:24 05/08/22 09:30 Temperature 97.2 F L Pulse Rate 65 68 Respiratory Rate 20 Blood Pressure 110/72 Pulse Oximetry 92 Oxygen Delivery Room Air Intake/Output Intake/Output: Intake & Output 05/05/22 05/06/22 05/07/22 05/08/22 23:59 23:59 23:59 23:59 Intake Total 1070 1066 970 240 Output Total 227 021 3287 650 Balance 945 741 -1155 -410 Meds/Results Medications: Active Medications Generic Name Dose Route Start Last Admin Trade Name Freq PRN Reason Stop Dose Admin Aspirin 81 mg 05/03/22 09:00 05/08/22 09:24 Aspirin 81 Mg Enteric Tablet PO 81 mg DAILY SHANE Administration Atorvastatin Calcium 80 mg 05/02/22 21:00 05/07/22 20:55 Atorvastatin 40 Mg Tablet PO 80 mg QHS SHANE Administration Docusate Sodium 100 mg 05/06/22 21:35 05/07/22 08:39 Docusate Sodium 100 Mg Capsule PO 100 mg Q12H PRN Administration Constipation Enoxaparin Sodium 40 mg 05/03/22 09:00 05/08/22 09:25 Enoxaparin 40 Mg/0.4 Ml Syringe SUB-Q Not Given DAILY SHANE Ferrous Sulfate 324 mg 05/02/22 17:00 05/08/22 09:24 Ferrous Sulfate 324 Mg Tablet PO 324 mg BID SHANE Administration Furosemide 80 mg 05/09/22 09:00 Furosemide 80 Mg Tablet PO
--- NOTE | 2022-05-08 12:35 | PM.DS ---
DS: Admitting Diagnosis Discharge Date 05/08/22 Admitting Diagnosis sob DS: Discharge Diagnosis Discharge Diagnosis (1) CHF (congestive heart failure): Code(s): I50.9 - Heart failure, unspecified Status: Chronic Assessment and Plan: EF 10-15% on 12/11/2017 Metoprolol, losartan, lasix at home CXR 05/02 shows small bilateral pleural effusions with bibasilar pulmonary edema, unchanged on 05/04, 05/05, 05/07 repeat CXRs [place] 8750[place] [address] [place] [address] I&O values are unreliable, torres requested to be placed 05/07 to evaluate response to diuresis, patient refused Cont IV diuresis, increased to lasix 60 mg IV BID 05/06 Cont 1500 ml fluid restriction Clinically improving (2) Atrial fibrillation: Code(s): I48.91 - Unspecified atrial fibrillation Status: Chronic Assessment and Plan: Patient has atrial fibrillation. Currently paced rhythm. Patient states he no longer takes Eliquis code as he could no longer afford this. Consider starting Coumadin but will discuss with Cardiology 1st. He was seen here last November for a GI bleed but was not on medications at that time. Colonoscopy did show diverticulosis with evidence of recent bleeding as well as internal hemorrhoids. Patient's hemoglobin is in the 12 range and stable currently. Continue metoprolol. Discussed with Cardiology about anticoagulation, will defer to Dr Patel outpatient (3) Mixed hyperlipidemia: Code(s): E78.2 - Mixed hyperlipidemia Status: Chronic Assessment and Plan: LFT stable. Continue atorvastatin. Alk-phos level is elevated which has been noted recently but his PSA is 3.1. Renal function, calcium and protein levels are within normal limits making multiple myeloma unlikely. (4) Anemia: Qualifiers: Anemia type: iron deficiency Iron deficiency anemia type: chronic blood loss Qualified Code(s): D50.0 - Iron deficiency anemia secondary to blood loss (chronic) Code(s): D64.9 - Anemia, unspecified Status: Acute Assessment and Plan: Hemoglobin close to normal. Continue iron. (5) CAD (coronary artery disease): Code(s): I25.10 - Atherosclerotic heart disease of [place] coronary artery without angina pectoris Status: Chronic Assessment and Plan: Stable. Troponin negative x3. Continue medical management. Plan DVT prophylaxis with SCDs GI prophylaxis not indicated Code status full code DS: Summary Hospital Course Hospital Course: 86-year-old male with coronary disease, AFib, heart failure presenting with shortness of breath and heart failure exacerbation. Cardiology was consulted, he was placed on a fluid restriction and IV diuresis. Symptoms improved significantly over time and he reached close to dry weight. He was discharged on oral diuretics, see above and med rec for details. Time Spent with Patient Time attestation: Total time spent providing and/or coordinating discharge services: Exam Narrative: General: No acute distress, alert and oriented per baseline HEENT: Atraumatic, normocephalic, mucous membranes moist CV: Regular rate and rhythm, S1, S2 Lungs: Improved air entry from yesterday, no wheeze, fine bibasilar crackles noted Abdomen: Soft, nontender, nondistended Extremities: Normal to inspection, minimal pitting edema bilaterally Skin: No rashes noted, no lesions or wounds seen Psych: Euthymic, appropriate affect DS: Data Data Completed and Pending Labs on day of discharge: Labs from last 24 hours 05/08/22 05/08/22 06:39 06:39 WBC 5.4 RBC 3.76 L Hgb 12.3 L Hct 38.6 L MCV 102.7 H MCH 32.7 MCHC 31.9 L RDW 18.1 H Plt Count 103 L MPV 11.8 H Immature Gran % (Auto) 0.4 Neut % (Auto) 71.0 Lymph % (Auto) 14.4 L Banner % (Auto) 13.4 H Eos % (Auto) 0.4 Baso % (Auto) 0.4 Lymph # (Auto) 0.78 L Banner # (Auto) 0.7 H Eos # (Auto) 0.0 Baso # (Auto) 0.0 Abs Immat Gran (
[2022-05-08 14:00] VITALS: BP 100/81; PULSE 75; RESP 14; TEMP 36.2; O2SAT 91
== END 2022-05-08 16:05 | disposition home or self-care (01) | DRG 293 ==
LOC: ANHED 10:27 → ANH3MEDSUR 11:46
PROVIDERS: Internal Medicine; Nurse Practitioner; Admitting Provider Family Medicine; Emergency Provider Emergency Medicine; PCP Family Medicine; Visit Provider Student in an Organized Health Care Education/Training Program
DX: I50.23 Acute on chronic systolic (congestive) heart failure (principal); I48.91 Unspecified atrial fibrillation; I25.10 Atherosclerotic heart disease of native coronary artery without angina pectoris; E78.2 Mixed hyperlipidemia; D50.0 Iron deficiency anemia secondary to blood loss (chronic); Z95.810 Presence of automatic (implantable) cardiac defibrillator; Z79.899 Other long term (current) drug therapy
CPT/HCPCS: 36415; 71045; 71046; 80048; 80053; 82607; 82746; 83690; 83735; 83880; 84439; 84443; 84480; 84484; 85025; 85055; 85380; 85610; 85730; 93005; 93970; 96372; 96374; 96376; 99285; A9270; C8929; G0378; J1650; J1940; J2270; Q9957